=== PATIENT | male | born 1945 | race Caucasian/White ===

== ENCOUNTER → 2018-08-05 07:50 | Outpatient (CLI) | payer BC, SELFPAY ==
[2018-08-05 08:50] LABS: Alanine Aminotransferase 39 IU/L (21-72); Albumin 4.1 g/dL (3.5-5.0); Albumin Globulin Ratio 1.6 (1.0-2.8); Alkaline Phosphatase 69 U/L (38-126); Aspartate Aminotransferase 30 IU/L (17-59); BUN Creatinine Ratio 22.5 (6-22); Bilirubin Total 0.8 mg/dL (0.2-1.3); Blood Urea Nitrogen 27 mg/dL (9-20); Calcium 9.6 mg/dL (8.4-10.2); Carbon Dioxide 32 mmol/L (22-32); Chloride 103 mmol/L (98-107); Cholesterol 203 mg/dL (140-199); Estimated Glomerular Filt Rate 59.3 mL/min (>60); Globulin 2.6 g/dL (1.7-4.1); Glucose 87 mg/dL (80-110); HDL Cholesterol 57 mg/dL (40-60); HEMOLYSIS < 15 (0-50); LDL Cholesterol Calculated 128 mg/dL (<100); Potassium 4.1 mmol/L (3.4-5.1); Sodium 145 mmol/L (137-145); Total Protein 6.7 g/dL (6.3-8.2); Triglycerides 88 mg/dL (35-150)
== END ==
PROVIDERS: PCP Internal Medicine; Visit Provider Internal Medicine
DX: J30.9 Allergic rhinitis, unspecified (principal); R97.20 Elevated prostate specific antigen [PSA]; Z00.00 Encounter for general adult medical examination without abnormal findings
CPT/HCPCS: 36415; 80053; 80061; 84153

== ENCOUNTER → 2019-11-24 07:07 | Outpatient (CLI) | payer BC, SELFPAY ==
[2019-11-24 09:07] LABS: Alanine Aminotransferase 27 IU/L (<50); Albumin Globulin Ratio 1.3 (1.0-2.8); Alkaline Phosphatase 79 U/L (38-126); Aspartate Aminotransferase 33 IU/L (17-59); BUN Creatinine Ratio 17.7 (6-22); Bilirubin Total 0.7 mg/dL (0.2-1.3); Blood Urea Nitrogen 23 mg/dL (9-20); Calcium 9.4 mg/dL (8.4-10.2); Carbon Dioxide 28 mmol/L (22-32); Chloride 103 mmol/L (98-107); Cholesterol 198 mg/dL (140-199); Glucose 82 mg/dL (80-110); HDL Cholesterol 45 mg/dL (40-60); HEMOLYSIS < 15 (0-50); LDL Cholesterol Calculated 133 mg/dL (<100); Potassium 4.2 mmol/L (3.4-5.1); Sodium 140 mmol/L (137-145); Triglycerides 100 mg/dL (35-150)
[2019-11-24 09:34] LABS: Prostate Specific Antigen 3.94 ng/mL (0.10-4.00)
== END ==
PROVIDERS: Family Provider Internal Medicine; PCP Internal Medicine; Referring Provider Internal Medicine; Visit Provider Internal Medicine
DX: Z13.1 Encounter for screening for diabetes mellitus (principal); Z13.6 Encounter for screening for cardiovascular disorders; E78.5 Hyperlipidemia, unspecified; R97.20 Elevated prostate specific antigen [PSA]
CPT/HCPCS: 36415; 80053; 80061; 84153

== ENCOUNTER → 2020-06-02 13:54 | Outpatient (CLI) | payer BC, SELFPAY | PROVIDERS: Family Provider Internal Medicine; PCP Internal Medicine; Visit Provider Specialist | DX: N39.0 Urinary tract infection, site not specified (principal); N48.0 Leukoplakia of penis; N40.1 Benign prostatic hyperplasia with lower urinary tract symptoms; N13.8 Other obstructive and reflux uropathy; Z87.898 Personal history of other specified conditions | CPT/HCPCS: 51798; 81002; 87086 ==

== ENCOUNTER → 2020-07-21 07:34 | Outpatient (CLI) | payer BC, SELFPAY ==
[2020-07-21 10:08] LABS: Prostate Specific Antigen 5.51 ng/mL (0.10-4.00)
== END ==
PROVIDERS: Family Provider Internal Medicine; PCP Internal Medicine; Referring Provider Specialist; Visit Provider Specialist
DX: R97.20 Elevated prostate specific antigen [PSA] (principal)
CPT/HCPCS: 36415; 84153

== ENCOUNTER → 2022-11-22 07:16 | Outpatient (CLI) | payer BC, SELFPAY ==
[2022-11-22 08:19] LABS: Add Manual Diff / Slide Review NO; Basophils Absolute Auto 100 /uL (0-100); Basophils Percent Auto 1.3 % (0-2); Eosinophils Absolute Auto 500 /uL (0-450); Eosinophils Percent Auto 6.4 % (2-4); Hematocrit 47.7 % (41-53); Hemoglobin 15.7 g/dL (13.5-17.5); Lymphocytes Absolute Auto 1200 /uL (1100-4500); Lymphocytes Percent Auto 15.6 % (25-40); Mean Corpuscular HGB Conc 32.9 % (30-36); Mean Corpuscular Volume 91.1 fL (80-100); Monocytes Absolute Auto 800 /uL (0-900); Monocytes Percent Auto 10.4 % (3-14); Neutrophils Absolute Auto 5100 /uL (1500-7000); Neutrophils Percent Auto 66.3 % (50-75); Platelet Count 300 X10^3/uL (150-400); Red Blood Cell Count 5.23 X10^6/uL (4.5-5.9); Red Cell Distribution Width 14.7 % (11.6-14.8); White Blood Cell Count 7.7 X10^3/uL (4.5-11.0)
[2022-11-22 08:51] LABS: Alanine Aminotransferase 22 IU/L (<50); Albumin 3.8 g/dL (3.5-5.0); Albumin Globulin Ratio 1.5 (1.0-2.8); Alkaline Phosphatase 81 U/L (38-126); Aspartate Aminotransferase 25 IU/L (17-59); BUN Creatinine Ratio 31.7 (6-22); Bilirubin Total 0.6 mg/dL (0.2-1.3); Blood Urea Nitrogen 38 mg/dL (9-20); Calcium 9.2 mg/dL (8.4-10.2); Carbon Dioxide 29 mmol/L (22-32); Chloride 106 mmol/L (98-107); Cholesterol 204 mg/dL (140-199); Estimated Glomerular Filt Rate > 60 mL/min (>60); Globulin 2.6 g/dL (1.7-4.1); Glucose 89 mg/dL (80-110); HDL Cholesterol 62 mg/dL (40-60); HEMOLYSIS < 15 (0-50); LDL Cholesterol Calculated 127 mg/dL (<100); Potassium 4.4 mmol/L (3.4-5.1); Sodium 141 mmol/L (137-145); Total Protein 6.4 g/dL (6.3-8.2); Triglycerides 74 mg/dL (35-150)
[2022-11-22 08:58] LABS: Free T4, Direct Thyroxine 1.41 ng/dL (0.78-2.19)
[2022-11-22 09:12] LABS: Thyroid Stimulating Hormone 2.19 uIU/mL (0.47-4.68)
[2022-11-22 09:14] LABS: Appearance Urine UA CLEAR; Bilirubin Urine UA NEGATIVE (NEGATIVE); Color Urine UA YELLOW; Glucose Urine UA NEGATIVE (Negative); Ketones Urine UA NEGATIVE (NEGATIVE); Leukocyte Esterase Urine UA NEGATIVE (NEGATIVE); Nitrite Urine UA NEGATIVE (Negative); Occult Blood Urine UA TRACE-INTACT (Negative); Protein Urine UA NEGATIVE (Negative); Specific Gravity Urine UA >=1.030 (1.000-1.035); Urobilinogen Urine UA 0.2 E.U./dL (0.2)
[2022-11-22 09:20] LABS: Amorphous Sediment Urine 1+; Bacteria Urine Occasional (0-1); Culture Indicated Urine Specimen Cultured; RBC Urine 5-10/HPF (0-5/HPF); Squamous Epithelial Cell Urine 0-1 /HPF (0-5/HPF); WBC Urine 1-5/HPF (0-5/HPF)
== END ==
PROVIDERS: Family Provider Internal Medicine; PCP Internal Medicine; Referring Provider Internal Medicine; Visit Provider Internal Medicine
DX: F09 Unspecified mental disorder due to known physiological condition (principal); I63.9 Cerebral infarction, unspecified; R26.89 Other abnormalities of gait and mobility
CPT/HCPCS: 36415; 80053; 80061; 81001; 84439; 84443; 85025; 87086

== ENCOUNTER → 2022-12-10 07:53 | Outpatient (CLI) | payer BC, SELFPAY ==
--- NOTE | 2022-12-10 07:56 | DI.CT.S_ITS ---
PROCEDURE: CT HEAD/BRAIN WO/W CON INDICATIONS: Cerebral infarction TECHNIQUE: 4.5 mm thick angled axial sections acquired from the foramen magnum to the vertex before and after the administration of intravenous contrast, with coronal and sagittal reformats. For radiation dose reduction, the following was used: automated exposure control, adjustment of mA and/or kV according to patient size. COMPARISON: None. FINDINGS: Image quality: Excellent. CSF Spaces: Generalized ventriculomegaly out of proportion to sulcal widening. Brain: No midline shift. No intracranial bleeds or masses. No abnormal intracranial enhancement. Whiting-white interface appears normal. Skull and face: Calvarium and visualized facial bones appear intact, without suspicious lesions. Sinuses: Visualized sinuses and mastoids are clear. IMPRESSION: Moderate ventriculomegaly out of proportion to degree of cerebral atrophy. Differential would include centralized atrophy and normal pressure hydrocephalus. If clinically relevant, consider additional confirmatory testing. Approved by: Brendan Pelayo M.D. on 12/10/2022 at 10:31
--- NOTE | 2022-12-10 07:56 | DI.US.S_ITS ---
PROCEDURE: US CAROTID DOPPLER BI INDICATIONS: CEREBRAL INFARCTION TECHNIQUE: Color and pulse Doppler interrogation was performed of both carotid systems, with image documentation and velocity measurements. COMPARISON: [facility], , CAROTID ARTERY DOPPLER BILAT, 06/29/2011, 11:39. FINDINGS: Stenosis calculations are based on SRU (Society of Radiologists in Ultrasound) criteria. Right side: Brachial blood pressure: 138/74 mm Hg. Common carotid artery peak systolic velocity: 107 cm/sec. Internal carotid artery peak systolic velocity: 63 cm/sec. Internal carotid artery end diastolic velocity: 94 cm/sec. External carotid artery peak systolic velocity: 58 cm/sec. ICA/CCA peak systolic ratio: 0.9 . Whiting scale imaging description: Mild plaque at the bifurcation Percent internal carotid artery stenosis: Less than 50% . Vertebral artery: Flow direction is antegrade. Left side: Brachial blood pressure: 131/67 mm Hg. Common carotid artery peak systolic velocity: 108 cm/sec. Internal carotid artery peak systolic velocity: 58 cm/sec. Internal carotid artery end diastolic velocity: 71 cm/sec. External carotid artery peak systolic velocity: 71 cm/sec. ICA/CCA peak systolic ratio: 0.7 . Whiting scale imaging description: Mild plaque at the bifurcation Percent internal carotid artery stenosis: Less than 50% . Vertebral artery: Flow direction is antegrade. IMPRESSION: Less than 50% stenosis of the internal carotid arteries bilaterally. Overall appearance is stable. Dictated by: Zuleyka Verma M.D. on 12/10/2022 at 16:27 Approved by: Zuleyka Verma M.D. on 12/10/2022 at 16:37
--- NOTE | 2022-12-10 07:56 | DI.ECHO.S_ITS ---
[place] [facility]---------+ [facility] +---------+ : : [address] : : : : [id number] : : : : Phone: [phone]+ Echocardiogram Report + + :Name: ABEBE NORMAN Study Date: 12/10/2022 Height: 71 in : :[facility] ReadingLocation: Weight: 145 lb : : Gender: Male BSA: 1.8 m2 : :: 1945 Age: 77 yrs BP: 112/75 mmHg: :Reason For Study: CEREBRAL INFARCT : :Ordering Physician: JUVENAL, : :JAZMINE Pichardo Performed By: KRISTIN HAWLEY : :Referring: JAZMINE SANFORD : + + Interpretation Summary Normal left ventricle isize with ejection fraction 60-65%. Mild mitral regurgitation. The aortic valve is mildly calcified. Mild aortic regurgitation. Procedure: A two-dimensional transthoracic echocardiogram with color flow and Doppler was performed. The study quality was technically adequate. The patient was in sinus rhythm with heart rates between 66-77 bpm during the exam. Left Ventricle: The left ventricle is normal in size and wall thickness. The ejection fraction is estimated to be 60-65%. There are no focal wall motion abnormalities. Right Ventricle: The right ventricle is normal in size and function. Atria: The left atrial size is normal. The right atrium is mildly dilated. There is no Doppler evidence for an interatrial shunt. Mitral Valve: The mitral valve is normal in structure and function. There is mild mitral regurgitation. Aortic Valve: The aortic valve is trileaflet. The aortic valve is mildly calcified. There is no aortic valve stenosis. There is mild aortic regurgitation. Tricuspid Valve: The tricuspid valve is normal. There is trace tricuspid regurgitation. The right ventricular systolic pressure is estimated to be at least 34 mmHg based on an estimated right atrial pressure of 3 mm Hg. Pulmonic Valve: The pulmonic valve leaflets are thin and pliable; valve motion is normal. There is mild pulmonic regurgitation. Great Vessels: The aortic root is mildly dilated. The ascending aorta is normal in size. The IVC is of normal diameter and collapses greater than 50% with a sniff. This suggests a low right atrial pressure of 3 mm Hg. Pericardium/ Pleura There is no pericardial effusion. There is no pleural effusion. MMode/2D Measurements & Calculations LVIDd: 3.1 cm LVOT diam: 2.3 cm LVIDs: 2.2 cm Ao root diam: 4.2 cm FS: 27.8 % asc Aorta Diam: 3.5 cm IVSd: 0.97 cm Ao Arch Diam (Prox Trans): 3.0 cm LVPWd: 0.95 cm LV muñiz. diameter/BSA (cm/m^2): 1.7 LV sys. diameter/BSA (cm/m^2): 1.2 LA A2 area: 13.4 cm2 RA long axis: 4.5 cm LA A4 area: 12.9 cm2 RA area: 17.1 cm2 LA length (vol): 4.9 cm RA vol: 55.0 ml LA vol: 29.9 ml RA : 29.9 ml/m2 LA vol index: 16.2 ml/m2 IVC diam: 0.76 cm RVD1 (basal): 3.8 cm RVD2 (mid): 3.9 cm TAPSE: 2.1 cm Doppler Measurements & Calculations Ao V2 max: 114.9 cm/sec LVOT Max Deandre: 119.0 cm/sec Ao V2 mean: 82.0 cm/sec LV V1 max P.7 mmHg Ao max P.3 mmHg LV V1 VTI: 22.0 cm Ao mean P.9 mmHg JUNITO(I,D): 3.8 cm2 Ao V2 VTI: 23.4 cm JUNITO(V,D): 4.2 cm2 sev ratio: 0.94 JUNITO indexed to BSA (cm^2/m^2): 2.1 MV E max deandre: 88.6 cm/sec TR max deandre: 277.9 cm/sec MV A max deandre: 94.0 cm/sec TR max P.9 mmHg MV E/A: 0.94 PA pr(Accel): 24.2 mmHg Med Peak E' Deandre: 8.3 cm/sec E/E' med: 10.6 Lat Peak E' Deandre: 7.1 cm/sec E/E' lat: 12.5 E/e' average: 11.6 MV dec time: 0.25 sec SV(LVOT): 89.4 ml Electronically signed by: Uriah Curran on Reading Physician:12/10/2022 09:19 AM
== END ==
PROVIDERS: Family Provider Internal Medicine; PCP Internal Medicine; Referring Provider Internal Medicine; Visit Provider Internal Medicine
DX: I63.9 Cerebral infarction, unspecified (principal); I08.0 Rheumatic disorders of both mitral and aortic valves; I77.810 Thoracic aortic ectasia; F09 Unspecified mental disorder due to known physiological condition; R26.89 Other abnormalities of gait and mobility
CPT/HCPCS: 70470; 93306; 93880; Q9967

== ENCOUNTER → 2023-02-22 12:09 | Outpatient (CLI) | payer BC, SELFPAY ==
--- NOTE | 2023-02-22 | DI.MRI.S_ITS ---
PROCEDURE: MR HEAD/BRAIN WO CON INDICATIONS: Other amnesia TECHNIQUE: Non-contrast axial T1 spin echo, axial T2 fast spin echo, sagittal and axial FLAIR, coronal T2 fast spin echo, axial gradient echo, axial diffusion and ADC through the brain. COMPARISON: [facility], CT, CT HEAD/BRAIN WO/W CON, 12/10/2022, 9:05. FINDINGS: Image quality: Excellent. CSF spaces: The lateral ventricles and the 3rd ventricle are symmetrically prominent, as before. Basal cisterns are patent. No extra-axial fluid collections. Brain: No intracranial bleeds or mass effects. There is cerebral volume loss for age. There are periventricular and deep white matter chronic small vessel ischemic changes. Brainstem appears normal. Diffusion-weighted images show no acute ischemic insults. No chronic ischemic insults. Normal intravascular flow voids are present. Skull and face: Calvarial bone marrow is normal in signal. Orbits are normal. Sinuses: Sinuses and mastoids are clear. Moderate leftward nasal septal deviation is incidentally noted. IMPRESSION: Abnormally prominent lateral ventricles, which are more prominent than would be expected, given the degree of sulcal atrophy. Please consider normal pressure hydrocephalus. Dictated by: Jeffrey Orellana M.D. on 02/22/2023 at 12:36 Approved by: Jeffrey Orellana M.D. on 02/22/2023 at 12:37
== END ==
PROVIDERS: Family Provider Internal Medicine; PCP Internal Medicine; Referring Provider Psychiatry & Neurology Neurology; Visit Provider Psychiatry & Neurology Neurology
DX: R41.3 Other amnesia (principal); Z81.8 Family history of other mental and behavioral disorders
CPT/HCPCS: 70551

== ENCOUNTER 2023-06-04 10:45 | Outpatient (RCR) | payer BC, SELFPAY ==
--- NOTE | 2023-03-12 11:13 | PT.OIE ---
Current Diagnoses Unsteadiness on feet (03/12/23) Past Medical History (Last Updated 12/18/22 @ 11:53 by Pola Avila MD) Allergic rhinitis (05/03/14) BXO (balanitis xerotica obliterans) Chicken pox (~1952) Elevated prostate specific antigen (PSA) (02/04/18) Hyperlipidemia, unspecified (06/28/11) Measles (~1953) Mild cognitive impairment Mumps (~1958) Parkinson's Disease Rubella (~1963) Past Surgical History (Last Reviewed 11/20/22 @ 11:07 by Pola Avila MD) Anesthesia Cut of face (~1948) Hx of inguinal hernia surgery (~01/18/03) Urethral stricture (~10/10/02) Visit Care Team Role Provider Type Pola Avila MD Family Provider Physician Primary Care Provider Specialty: Internal Medicine Address: [address] [place] [address], [address], [address] Email: [email or web address] Michelle Morales MD Attending Provider Non-Staff Referring Provider Specialty: Neurology Address: [address] [place] [address], [id number] Email: Physical Therapy Initial Evaluation PT-OP-A Visit Information Start: 03/12/23 10:02 Freq: Status: Active Protocol: Document 03/12/23 10:02 ES (Rec: 03/12/23 10:57 ES [id number]) Out-Patient Physical Therapy Visit Information Visit Information Visit Type Initial Evaluation Visit Start Time 10:02 Visit Stop Time 10:47 Total Visit Minutes 45 Visit Number 1 Number of SENSOR SPECIALIST Visits 0 Evaluation Information Evaluation Date 03/12/23 PT-OP-B Current Condition Start: 03/12/23 10:02 Freq: Status: Active Protocol: Document 03/12/23 10:02 ES (Rec: 03/12/23 10:57 ES [id number]) Current Condition History of Current Condition Current Complaints Difficulty walking, unsteadiness History of Current Condition Patient was diagnosed with Parkinson's Disease in November 2021, though had been noticing symptoms for a while before that. Is being followed by a neurologist and was put on medication but states it doesn't seem to be making much difference. No falls in the last year. Also recently diagnosed with dementia. ( present during visit and provided history). Has been using a walking stick recently for walking outside. stated they walk during good weather but have trouble figuring out ways to exercise in inclement weather especially during winter months. Treatment Goals Patient/Caregiver Goals To be able to walk easier, to have better balance. PT-OP-D Balance Start: 03/12/23 10:02 Freq: Status: Active Protocol: Document 03/12/23 10:02 ES (Rec: 03/12/23 10:57 ES [id number]) Balance Tests Hickman Balance Test Hickman Balance Test Score 41 (<45 indicates increased risk for falls) PT-OP-E Functional Tests Start: 03/12/23 10:02 Freq: Status: Active Protocol: Document 03/12/23 10:02 ES (Rec: 03/12/23 10:57 ES [id number]) Functional Tests Five Times Sit to Stand Test Score 22.56 seconds Timed Up and Go (TUG) Score 17 seconds Comments no AD TUG Impairment Rating 60 to <80% Impaired (Score 16- 17) PT-OP-G Mobility & Gait Start: 03/12/23 10:02 Freq: Status: Active Protocol: Document 03/12/23 10:02 ES (Rec: 03/12/23 11:12 ES [id number]) OP Gait Assessment Gait Deviations General Gait Pattern Decreased Stride Length, Decreased Feet Clearance, Festinating,Flexed Trunk Comments Gait Comments Ambulates with intermittent shuffling pattern, able to improve with cueing. PT-OP-T Assessment and Plan Start: 03/12/23 10:02 Freq: Status: Active Protocol: Document 03/12/23 10:02 ES (Rec: 03/12/23 11:12 ES [id number]) Physical Therapy Assessment Rehab Potential Rehabilitation Potential Good Evaluation Complexity Number of Personal Factors/Comorbidities 1-2 Number of Body Systems Impaired 1-2 Clinical Presentation at Evaluation Evolving Impairments Impairments Balance,Coordination, Functional Mobility,Gait, Strength Goals Three Impairment Functional mobility, independence Snf Goal (LTG) Patient and will be independent in home/community fitness program for maintenance of function. LTG Duration 8 weeks (05/07/23) Two Impairment Balance Snf Goal (LTG) Patient will improve TUG score to <12 seconds indicating low risk for falls. LTG Duration 8 weeks (05/07/23) One Impairment Weakness Short Term Goal (STG) Patient will decrease 5xSTS score to <15 seconds indicating clinically significant change in functional strength. STG Duration 4 weeks (04/09/23) Assessment Summary Assessment Patient is a 77 year old male referred to PT for unsteadiness related to Parkinson's Disease. He presents with decreased functional strength, decreased balance, and impaired gait pattern. All functional outcome measure scores classified him at increased risk for falls. He demonstrated typical Parkinson 's gait with shuffling pattern and difficulty with initiation and turning. He will benefit from skilled therapy to address these problems through strength and balance training as well provide education on HEP and community resources for exercise to maintain year- round. He may also benefit from LSVT [facility] and Loud training for more specific and intensive treatment. Physical Therapy Plan Frequency and Duration Frequency of Treatment 1x/Week Duration of treatment (weeks) 8 Plan of Care Start Date 03/12/23 Plan of Care End Date 05/07/23 Therapeutic Interventions Therapeutic Interventions Balance Training,Coordination Training,Gait Training,Home Exercise Program,Neuromuscular Re-education,Patient/ Caregiver Education,Self-Care/ Home Management,Therapeutic Activities,Therapeutic Exercises Other Therapeutic Interventions LSVT Big and Loud Next Visit Focus/Plan Next Note Type Treatment Note Next Visit Plan Balance and gait training, instruct in HEP. Provide options for LSVT treatment.
--- NOTE | 2023-03-12 11:16 | PT.OPPOC ---
Physical, Occupational & Speech Therapy At [facility] Current Diagnoses Unsteadiness on feet (03/12/23) Visit Care Team Role Provider Type Pola Avila MD Family Provider Physician Primary Care Provider Specialty: Internal Medicine Address: [address] [place] [address], [facility] [address], [place], [address] Email: [email or web address] Michelle Morales MD Attending Provider Non-Staff Referring Provider Specialty: Neurology Address: [address] [place], [address] Email: Plan Of Care PT-OP-T Assessment and Plan Start: 03/12/23 10:02 Freq: Status: Active Protocol: Document 03/12/23 10:02 ES (Rec: 03/12/23 11:12 ES [id number]) Physical Therapy Assessment Rehab Potential Rehabilitation Potential Good Evaluation Complexity Number of Personal Factors/Comorbidities 1-2 Number of Body Systems Impaired 1-2 Clinical Presentation at Evaluation Evolving Impairments Impairments Balance,Coordination, Functional Mobility,Gait, Strength Goals Three Impairment Functional mobility, independence Usp Goal (LTG) Patient and will be independent in home/community fitness program for maintenance of function. LTG Duration 8 weeks (05/07/23) Two Impairment Balance Ultrasound Specialist Goal (LTG) Patient will improve TUG score to <12 seconds indicating low risk for falls. LTG Duration 8 weeks (05/07/23) One Impairment Weakness Short Term Goal (STG) Patient will decrease 5xSTS score to <15 seconds indicating clinically significant change in functional strength. STG Duration 4 weeks (04/09/23) Assessment Summary Assessment Patient is a 77 year old male referred to PT for unsteadiness related to Parkinson's Disease. He presents with decreased functional strength, decreased balance, and impaired gait pattern. All functional outcome measure scores classified him at increased risk for falls. He demonstrated typical Parkinson 's gait with shuffling pattern and difficulty with initiation and turning. He will benefit from skilled therapy to address these problems through strength and balance training as well provide education on HEP and community resources for exercise to maintain year- round. He may also benefit from LSVT Big and Loud training for more specific and intensive treatment. Physical Therapy Plan Frequency and Duration Frequency of Treatment 1x/Week Duration of treatment (weeks) 8 Plan of Care Start Date 03/12/23 Plan of Care End Date 05/07/23 Therapeutic Interventions Therapeutic Interventions Balance Training,Coordination Training,Gait Training,Home Exercise Program,Neuromuscular Re-education,Patient/ Caregiver Education,Self-Care/ Home Management,Therapeutic Activities,Therapeutic Exercises Other Therapeutic Interventions LSVT Big and Loud Next Visit Focus/Plan Next Note Type Treatment Note Next Visit Plan Balance and gait training, instruct in HEP. Provide options for LSVT treatment. Plan of Care Dates Plan of Care Start Date 03/12/23 Plan of Care End Date 05/07/23 Electronically Signed by: Luz Marina De Souza, PT 03/12/23 6525 If you are in agreement with this Plan of Care, please return a signed and dated copy. I have reviewed this Plan of Care and certify that the skilled therapy services above are required to meet the patient?s needs. Physician Signature Date Printed Name and Credentials Clinical Instructor Signature Printed Name and Credentials
--- NOTE | 2023-03-21 16:40 | PT.OTN ---
Current Diagnoses Unsteadiness on feet (03/21/23) Physical Therapy Treatment Note PT-OP-A Visit Information Start: 03/12/23 10:02 Freq: Status: Active Protocol: Document 03/21/23 15:45 ES (Rec: 03/21/23 16:39 ES [id number]) Out-Patient Physical Therapy Visit Information Visit Information Visit Type Treatment Note Visit Start Time 15:36 Visit Stop Time 16:21 Total Visit Minutes 45 Visit Number 2 PT-OP-B Current Condition Start: 03/12/23 10:02 Freq: Status: Active Protocol: Document 03/12/23 10:02 ES (Rec: 03/12/23 10:57 ES [id number]) Current Condition History of Current Condition Current Complaints Difficulty walking, unsteadiness History of Current Condition Patient was diagnosed with Parkinson's Disease in November 2021, though had been noticing symptoms for a while before that though. Is being followed by a neurologist and was put on medication but states it doesn't seem to be making much difference. No falls in the last year. Also recently diagnosed with dementia. ( present during visit and provided history). Has been using a walking stick recently for walking outside. stated they walk during good weather but have trouble figuring out ways to exercise in inclement weather especially during winter months. Treatment Goals Patient/Caregiver Goals To be able to walk easier, to have better balance. PT-OP-C Subjective Start: 03/12/23 10:02 Freq: Status: Active Protocol: Document 03/21/23 15:45 ES (Rec: 03/21/23 16:39 ES [id number]) OP-PT Subjective Patient Comments Patient Comments Patient's reported that patient started having diarrhea on Saturday, was better by the next night but was exhausted for a couple days. No falls since last visit. PT-OP-D Balance Start: 03/12/23 10:02 Freq: Status: Active Protocol: Document 03/12/23 10:02 ES (Rec: 03/12/23 10:57 ES [id number]) Balance Tests Hickman Balance Test Hickman Balance Test Score 41 (<45 indicates increased risk for falls) PT-OP-E Functional Tests Start: 03/12/23 10:02 Freq: Status: Active Protocol: Document 03/12/23 10:02 ES (Rec: 03/12/23 10:57 ES [id number]) Functional Tests Five Times Sit to Stand Test Score 22.56 seconds Timed Up and Go (TUG) Score 17 seconds Comments no AD TUG Impairment Rating 60 to <80% Impaired (Score 16- 17) PT-OP-G Mobility & Gait Start: 03/12/23 10:02 Freq: Status: Active Protocol: Document 03/12/23 10:02 ES (Rec: 03/12/23 11:12 ES [id number]) OP Gait Assessment Gait Deviations General Gait Pattern Decreased Stride Length, Decreased Feet Clearance, Festinating,Flexed Trunk Comments Gait Comments Ambulates with intermittent shuffling pattern, able to improve with cueing. PT-OP-Q Treatments Start: 03/12/23 10:02 Freq: Status: Active Protocol: Document 03/21/23 15:45 ES (Rec: 03/21/23 16:39 ES [id number]) Cardio Equipment Recumbent Elliptical (Biodex) Duration (Minutes) 10 Resistance 3 Seat Position 12 Other 30 rpm Neuro Re-Education Treatment Balance Activities 3 Details Step up/down 6 step with and without UE support Reps/Duration 3x5 ea side 2 Details Ball toss Surface Foam pad Equipment // bars, small romanian ball 1 Details Step over hurdles forward, sideways; forward/backward with single leg Equipment // bars PT-OP-T Assessment and Plan Start: 03/12/23 10:02 Freq: Status: Active Protocol: Document 03/21/23 15:45 ES (Rec: 03/21/23 16:39 ES [id number]) Physical Therapy Assessment Goals Three Impairment Functional mobility, independence Prison Goal (LTG) Patient and will be independent in home/community fitness program for maintenance of function. LTG Duration 8 weeks (05/07/23) Two Impairment Balance Prison Goal (LTG) Patient will improve TUG score to <12 seconds indicating low risk for falls. LTG Duration 8 weeks (05/07/23) One Impairment Weakness Short Term Goal (STG) Patient will decrease 5xSTS score to <15 seconds indicating clinically significant change in functional strength. STG Duration 4 weeks (04/09/23) Assessment Summary Assessment Patient initially had difficulty clearing hurdles, improving with cueing for bigger/wider steps and with repetition/practice. He demonstrated weakness with step up when performed without UE support. He was fatigued at end of session. He will benefit from further strength and balance training to reduce fall risk. Patient's was provided with list of LSVT [facility] and L[facility] providers in the area to contact. Physical Therapy Plan Next Visit Focus/Plan Next Note Type Treatment Note Next Visit Plan Assess response to today's treatment. Instruct in strengthening program for home . Progress balance training on shuttle balance board.
--- NOTE | 2023-04-04 16:57 | PT.OTN ---
Current Diagnoses Unsteadiness on feet (04/04/23) Physical Therapy Treatment Note PT-OP-A Visit Information Start: 03/12/23 10:02 Freq: Status: Active Protocol: Document 04/04/23 13:29 ES (Rec: 04/04/23 16:57 ES [id number]) Out-Patient Physical Therapy Visit Information Visit Information Visit Type Treatment Note Visit Start Time 13:20 Visit Stop Time 13:48 Total Visit Minutes 28 Visit Number 3 PT-OP-B Current Condition Start: 03/12/23 10:02 Freq: Status: Active Protocol: Document 03/12/23 10:02 ES (Rec: 03/12/23 10:57 ES [id number]) Current Condition History of Current Condition Current Complaints Difficulty walking, unsteadiness History of Current Condition Patient was diagnosed with Parkinson's Disease in November 2021, though had been noticing symptoms for a while before that though. Is being followed by a neurologist and was put on medication but states it doesn't seem to be making much difference. No falls in the last year. Also recently diagnosed with dementia. ( present during visit and provided history). Has been using a walking stick recently for walking outside. stated they walk during good weather but have trouble figuring out ways to exercise in inclement weather especially during winter months. Treatment Goals Patient/Caregiver Goals To be able to walk easier, to have better balance. PT-OP-C Subjective Start: 03/12/23 10:02 Freq: Status: Active Protocol: Document 04/04/23 13:29 ES (Rec: 04/04/23 16:57 ES [id number]) OP-PT Subjective Patient Comments Patient Comments Patient's reported that Tre started having diarrhea again and she was thinking it was the levodopa so her PCP had them stop that medication. Diarrhea has improved but patient now is weaker and more tired. reported Tre has been shuffling more and been more stiff since stopping the medication and being sick . Looked into [employer] programs and they require 4x/ week which is not reasonable for them. PT-OP-D Balance Start: 03/12/23 10:02 Freq: Status: Active Protocol: Document 03/12/23 10:02 ES (Rec: 03/12/23 10:57 ES [id number]) Balance Tests Hickman Balance Test Hickman Balance Test Score 41 (<45 indicates increased risk for falls) PT-OP-E Functional Tests Start: 03/12/23 10:02 Freq: Status: Active Protocol: Document 03/12/23 10:02 ES (Rec: 03/12/23 10:57 ES [id number]) Functional Tests Five Times Sit to Stand Test Score 22.56 seconds Timed Up and Go (TUG) Score 17 seconds Comments no AD TUG Impairment Rating 60 to <80% Impaired (Score 16- 17) PT-OP-G Mobility & Gait Start: 03/12/23 10:02 Freq: Status: Active Protocol: Document 03/12/23 10:02 ES (Rec: 03/12/23 11:12 ES [id number]) OP Gait Assessment Gait Deviations General Gait Pattern Decreased Stride Length, Decreased Feet Clearance, Festinating,Flexed Trunk Comments Gait Comments Ambulates with intermittent shuffling pattern, able to improve with cueing. PT-OP-Q Treatments Start: 03/12/23 10:02 Freq: Status: Active Protocol: Document 04/04/23 13:29 ES (Rec: 04/04/23 16:57 ES [id number]) Cardio Equipment Recumbent Elliptical (Biodex) Duration (Minutes) 5 Resistance 3 Seat Position 12 Other 30 rpm Therapeutic Exercises Standing Exercises SLS Side bilateral Equipment Used Bar, BUE support Reps/Minutes 2x10s ea side Comments HEP; cued for decreased UE support - use fingers vs hand Heel toe raises Side bilateral Equipment Used Bar, BUE support Reps/Minutes x10 Comments HEP Step back Side bilateral Equipment Used Bar, BUE support, target on floor Reps/Minutes x10 ea side Comments HEP; visual cue for increased ROM Side step Side bilateral Equipment Used bar, BUE support, target on floor Reps/Minutes x10 ea side Comments HEP; Visual cue for increased ROM Hip flexion Standing Exercise Name Marching Side bilateral Equipment Used Bar, BUE support Reps/Minutes x10 ea side Comments HEP; Cued for full ROM PT-OP-T Assessment and Plan Start: 03/12/23 10:02 Freq: Status: Active Protocol: Document 04/04/23 13:29 ES (Rec: 04/04/23 16:57 ES [id number]) Physical Therapy Assessment Impairments Impairments Balance,Coordination, Functional Mobility,Gait, Strength Goals Three Impairment Functional mobility, independence Mcfp Goal (LTG) Patient and will be independent in home/community fitness program for maintenance of function. LTG Duration 8 weeks (05/07/23) Two Impairment Balance Mcfp Goal (LTG) Patient will improve TUG score to <12 seconds indicating low risk for falls. LTG Duration 8 weeks (05/07/23) One Impairment Weakness Short Term Goal (STG) Patient will decrease 5xSTS score to <15 seconds indicating clinically significant change in functional strength. STG Duration 4 weeks (04/09/23) Assessment Summary Assessment Patient required visual cues in order to achieve full ROM with ex's. He was fatigued with treatment today due to deconditioning. He demonstrated increased shuffling gait and flexed posture, likely due to stopping PD meds. He had difficulty with SLS, requiring heavy LAUREL support. He and his were provided with handout for ex's from today. He will benefit from further strength and balance training with progression of HEP. Physical Therapy Plan Frequency and Duration Frequency of Treatment 1x/Week Duration of treatment (weeks) 8 Plan of Care Start Date 03/12/23 Plan of Care End Date 05/07/23
--- NOTE | 2023-04-08 16:25 | PT.OTN ---
Current Diagnoses Unsteadiness on feet (04/08/23) Physical Therapy Treatment Note PT-OP-A Visit Information Start: 03/12/23 10:02 Freq: Status: Active Protocol: Document 04/08/23 15:35 ES (Rec: 04/08/23 16:24 ES [id number]) Out-Patient Physical Therapy Visit Information Visit Information Visit Type Treatment Note Visit Start Time 15:36 Visit Stop Time 16:16 Total Visit Minutes 40 Visit Number 4 PT-OP-B Current Condition Start: 03/12/23 10:02 Freq: Status: Active Protocol: Document 03/12/23 10:02 ES (Rec: 03/12/23 10:57 ES [id number]) Current Condition History of Current Condition Current Complaints Difficulty walking, unsteadiness History of Current Condition Patient was diagnosed with Parkinson's Disease in November 2021, though had been noticing symptoms for a while before that though. Is being followed by a neurologist and was put on medication but states it doesn't seem to be making much difference. No falls in the last year. Also recently diagnosed with dementia. ( present during visit and provided history). Has been using a walking stick recently for walking outside. stated they walk during good weather but have trouble figuring out ways to exercise in inclement weather especially during winter months. Treatment Goals Patient/Caregiver Goals To be able to walk easier, to have better balance. PT-OP-C Subjective Start: 03/12/23 10:02 Freq: Status: Active Protocol: Document 04/08/23 15:35 ES (Rec: 04/08/23 16:24 ES [id number]) OP-PT Subjective Patient Comments Patient Comments Patient reported his back was a bit sore after last visit, reports he has a hx of back problems. was able to do exercises with patient at home without problems. Broke it up into parts because it was a lot to do at once. Patient is still having some diarrhea per . PT-OP-D Balance Start: 03/12/23 10:02 Freq: Status: Active Protocol: Document 03/12/23 10:02 ES (Rec: 03/12/23 10:57 ES [id number]) Balance Tests Hickman Balance Test Hickman Balance Test Score 41 (<45 indicates increased risk for falls) PT-OP-E Functional Tests Start: 03/12/23 10:02 Freq: Status: Active Protocol: Document 03/12/23 10:02 ES (Rec: 03/12/23 10:57 ES [id number]) Functional Tests Five Times Sit to Stand Test Score 22.56 seconds Timed Up and Go (TUG) Score 17 seconds Comments no AD TUG Impairment Rating 60 to <80% Impaired (Score 16- 17) PT-OP-G Mobility & Gait Start: 03/12/23 10:02 Freq: Status: Active Protocol: Document 03/12/23 10:02 ES (Rec: 03/12/23 11:12 ES [id number]) OP Gait Assessment Gait Deviations General Gait Pattern Decreased Stride Length, Decreased Feet Clearance, Festinating,Flexed Trunk Comments Gait Comments Ambulates with intermittent shuffling pattern, able to improve with cueing. PT-OP-Q Treatments Start: 03/12/23 10:02 Freq: Status: Active Protocol: Document 04/08/23 15:35 ES (Rec: 04/08/23 16:24 ES [id number]) Cardio Equipment Recumbent Stepper (Sci-Fit) Duration (Minutes) 6 Resistance 2.0 Seat Position 14 Other Cues for full ROM UE/LE Treadmill Duration (Minutes) 5 Speed 0.7 mph Incline 0 Other Cues for increased step length with visual target Therapeutic Exercises Standing Exercises Lunge stretch Side bilateral Equipment Used // bars Reps/Minutes 2x30s ea Comments hip flexor and calf stretch at end of session Neuro Re-Education Treatment Balance Activities 4 Details Tilt board fwd/bkwd and lateral Equipment // bars Comments Min A progressing to CGA, cues for forward weight shift with fwd/bkwd orientation to reduce posterior lean 2 Details Balloon toss, one foot on step Equipment 8 step Comments CGA with gait belt PT-OP-T Assessment and Plan Start: 03/12/23 10:02 Freq: Status: Active Protocol: Document 04/08/23 15:35 ES (Rec: 04/08/23 16:24 ES [id number]) Physical Therapy Assessment Goals Three Impairment Functional mobility, independence Mcc Goal (LTG) Patient and will be independent in home/community fitness program for maintenance of function. LTG Duration 8 weeks (05/07/23) Two Impairment Balance Smasher Hand Goal (LTG) Patient will improve TUG score to <12 seconds indicating low risk for falls. LTG Duration 8 weeks (05/07/23) One Impairment Weakness Short Term Goal (STG) Patient will decrease 5xSTS score to <15 seconds indicating clinically significant change in functional strength. STG Duration 4 weeks (04/09/23) Assessment Summary Assessment Patient had improved activity tolerance this visit though still c/o fatigue throughout visit requiring seated rest breaks. He had difficulty increasing step length on TM, requiring visual and verbal cues. He will benefit from further balance and gait training to reduce fall risk. Physical Therapy Plan Frequency and Duration Frequency of Treatment 1x/Week Duration of treatment (weeks) 8 Plan of Care Start Date 03/12/23 Plan of Care End Date 05/07/23 Therapeutic Interventions Therapeutic Interventions Balance Training,Coordination Training,Gait Training,Home Exercise Program,Neuromuscular Re-education,Patient/ Caregiver Education,Self-Care/ Home Management,Therapeutic Activities,Therapeutic Exercises Other Therapeutic Interventions LSVT Big and Loud Next Visit Focus/Plan Next Note Type Treatment Note Next Visit Plan Progress balance training on various surfaces.
--- NOTE | 2023-04-23 16:40 | PT.OTN ---
Current Diagnoses Unsteadiness on feet (04/23/23) Physical Therapy Treatment Note PT-OP-A Visit Information Start: 03/12/23 10:02 Freq: Status: Active Protocol: Document 04/23/23 15:42 ES (Rec: 04/23/23 15:53 ES [id number]) Out-Patient Physical Therapy Visit Information Visit Information Visit Type Progress Note Visit Note Progress note for 04/12/23 - 09/05 Visit Start Time 15:42 Visit Stop Time 16:27 Total Visit Minutes 45 Visit Number 5 PT-OP-B Current Condition Start: 03/12/23 10:02 Freq: Status: Active Protocol: Document 03/12/23 10:02 ES (Rec: 03/12/23 10:57 ES [id number]) Current Condition History of Current Condition Current Complaints Difficulty walking, unsteadiness History of Current Condition Patient was diagnosed with Parkinson's Disease in November 2021, though had been noticing symptoms for a while before that though. Is being followed by a neurologist and was put on medication but states it doesn't seem to be making much difference. No falls in the last year. Also recently diagnosed with dementia. ( present during visit and provided history). Has been using a walking stick recently for walking outside. stated they walk during good weather but have trouble figuring out ways to exercise in inclement weather especially during winter months. Treatment Goals Patient/Caregiver Goals To be able to walk easier, to have better balance. PT-OP-C Subjective Start: 03/12/23 10:02 Freq: Status: Active Protocol: Document 04/23/23 15:42 ES (Rec: 04/23/23 15:53 ES [id number]) OP-PT Subjective Patient Comments Patient Comments Patient has had to miss therapy visits due to GI issues; stated they saw the doctor and Tre was diagnosed with constipation. reported they have been trying to do exercises and walking but have been limited because of patient being ill. PT-OP-D Balance Start: 03/12/23 10:02 Freq: Status: Active Protocol: Document 04/23/23 15:42 ES (Rec: 04/23/23 16:10 ES [id number]) Balance Tests Hickman Balance Test Hickman Balance Test Score 40 (<45 indicates increased risk for falls) PT-OP-E Functional Tests Start: 03/12/23 10:02 Freq: Status: Active Protocol: Document 04/23/23 15:42 ES (Rec: 04/23/23 16:10 ES [id number]) Functional Tests Five Times Sit to Stand Test Score 27.4 seconds Timed Up and Go (TUG) Score 20 seconds Comments no AD TUG Impairment Rating 100% Impaired (Score 20) PT-OP-G Mobility & Gait Start: 03/12/23 10:02 Freq: Status: Active Protocol: Document 04/23/23 15:42 ES (Rec: 04/23/23 16:10 ES [id number]) OP Gait Assessment Gait Deviations General Gait Pattern Decreased Stride Length, Decreased Feet Clearance, Festinating,Flexed Trunk Comments Gait Comments Ambulates with intermittent shuffling pattern, able to improve with cueing. PT-OP-Q Treatments Start: 03/12/23 10:02 Freq: Status: Active Protocol: Document 04/23/23 15:42 ES (Rec: 04/23/23 15:53 ES [id number]) Cardio Equipment Recumbent Stepper (Sci-Fit) Duration (Minutes) 8 Resistance 2.0 Seat Position 14 Other Cues for full ROM UE/LE, increased speed Therapeutic Exercises Sitting Exercises 5xSTS Comments results above STS Resistance L1 band at waist (attached to gait belt) Reps/Minutes 2x10 Comments No UE support, 23 plinth height Standing Exercises Step tap Side bilateral Resistance 2lb ankle weights Equipment Used B rails Reps/Minutes 2x10 ea B Comments Forward, lateral, 6-12 step Neuro Re-Education Treatment Balance Activities TUG Comments results above Hickman Comments results above PT-OP-T Assessment and Plan Start: 03/12/23 10:02 Freq: Status: Active Protocol: Document 04/23/23 15:42 ES (Rec: 04/23/23 15:53 ES [id number]) Physical Therapy Assessment Impairments Impairments Balance,Coordination, Functional Mobility,Gait, Strength Goals Three Impairment Functional mobility, independence Crawler Dragline Operator Goal (LTG) Patient and will be independent in home/community fitness program for maintenance of function. LTG Duration 8 weeks (05/07/23) - progressing 04/23/23 Two Impairment Balance Crawler Dragline Operator Goal (LTG) Patient will improve TUG score to <12 seconds indicating low risk for falls. LTG Duration 8 weeks (05/07/23) - no progress 04/23/23 One Impairment Weakness Short Term Goal (STG) Patient will decrease 5xSTS score to <15 seconds indicating clinically significant change in functional strength. STG Duration 4 weeks (04/09/23) - no progress 04/23/23 Progress Towards Goals Progress Towards Goals Slow Progress due to Medical Issues Progress Comments Unable to attend multiple PT visits due to GI issues. Has been taken off PD medication. Assessment Summary Assessment Patient has been seen for 5 visits in this reporting period (8 weeks). He has had to miss visits and has been limited in ability to participate in HEP due to ongoing GI issues, so his progress has been slower than expected, and his scores on balance/functional measures have not improved since initial eval. Patient was also taken off PD meds which has impacted his balance and gait. Patient will benefit from further therapy in order to reduce his fall risk and improve his functional activity tolerance as his GI issues improve. Will extend his POC to account for his missed visits and medical setbacks. Physical Therapy Plan Frequency and Duration Frequency of Treatment 1x/Week Duration of treatment (weeks) 8 Plan of Care Start Date 04/23/23 Plan of Care End Date 06/18/23
--- NOTE | 2023-04-23 16:41 | PT.OPPOC ---
Physical, Occupational & Speech Therapy At [facility] Current Diagnoses Unsteadiness on feet (04/23/23) Visit Care Team Role Provider Type Pola Avila MD Family Provider Physician Primary Care Provider Specialty: Internal Medicine Address: [address] [place] [address], [facility] [address], [place], [address] Email: [email or web address] Michelle Morales MD Attending Provider Non-Staff Referring Provider Specialty: Neurology Address: [address] [place], [address] Email: Plan Of Care PT-OP-T Assessment and Plan Start: 03/12/23 10:02 Freq: Status: Active Protocol: Document 04/23/23 15:42 ES (Rec: 04/23/23 15:53 ES [id number]) Physical Therapy Assessment Impairments Impairments Balance,Coordination, Functional Mobility,Gait, Strength Goals Three Impairment Functional mobility, independence Alf Goal (LTG) Patient and will be independent in home/community fitness program for maintenance of function. LTG Duration 8 weeks (05/07/23) - progressing 04/23/23 Two Impairment Balance Alf Goal (LTG) Patient will improve TUG score to <12 seconds indicating low risk for falls. LTG Duration 8 weeks (05/07/23) - no progress 04/23/23 One Impairment Weakness Short Term Goal (STG) Patient will decrease 5xSTS score to <15 seconds indicating clinically significant change in functional strength. STG Duration 4 weeks (04/09/23) - no progress 04/23/23 Progress Towards Goals Progress Towards Goals Slow Progress due to Medical Issues Progress Comments Unable to attend multiple PT visits due to GI issues. Has been taken off PD medication. Assessment Summary Assessment Patient has been seen for 5 visits in this reporting period (8 weeks). He has had to miss visits and has been limited in ability to participate in HEP due to ongoing GI issues, so his progress has been slower than expected, and his scores on balance/functional measures have not improved since initial eval. Patient was also taken off PD meds which has impacted his balance and gait. Patient will benefit from further therapy in order to reduce his fall risk and improve his functional activity tolerance as his GI issues improve. Will extend his POC to account for his missed visits and medical setbacks. Physical Therapy Plan Frequency and Duration Frequency of Treatment 1x/Week Duration of treatment (weeks) 8 Plan of Care Start Date 04/23/23 Plan of Care End Date 06/18/23 Plan of Care Dates Plan of Care Start Date 04/23/23 Plan of Care End Date 06/18/23 Electronically Signed by: Luz Marina De Souza, PT 04/23/23 3616 If you are in agreement with this Plan of Care, please return a signed and dated copy. I have reviewed this Plan of Care and certify that the skilled therapy services above are required to meet the patient?s needs. Physician Signature Date Printed Name and Credentials Clinical Instructor Signature Printed Name and Credentials
--- NOTE | 2023-05-09 14:19 | PT.OTN ---
Current Diagnoses Unsteadiness on feet (05/09/23) Physical Therapy Treatment Note PT-OP-A Visit Information Start: 03/12/23 10:02 Freq: Status: Active Protocol: Document 05/09/23 14:07 ED (Rec: 05/09/23 14:19 ED [id number]) Out-Patient Physical Therapy Visit Information Visit Information Visit Type Treatment Note Visit Start Time 13:30 Visit Stop Time 14:10 Total Visit Minutes 40 Visit Number 6 PT-OP-B Current Condition Start: 03/12/23 10:02 Freq: Status: Active Protocol: Document 03/12/23 10:02 ES (Rec: 03/12/23 10:57 ES [id number]) Current Condition History of Current Condition Current Complaints Difficulty walking, unsteadiness History of Current Condition Patient was diagnosed with Parkinson's Disease in November 2021, though had been noticing symptoms for a while before that though. Is being followed by a neurologist and was put on medication but states it doesn't seem to be making much difference. No falls in the last year. Also recently diagnosed with dementia. ( present during visit and provided history). Has been using a walking stick recently for walking outside. stated they walk during good weather but have trouble figuring out ways to exercise in inclement weather especially during winter months. Treatment Goals Patient/Caregiver Goals To be able to walk easier, to have better balance. PT-OP-C Subjective Start: 03/12/23 10:02 Freq: Status: Active Protocol: Document 05/09/23 14:07 ED (Rec: 05/09/23 14:19 ED [id number]) OP-PT Subjective Patient Comments Patient Comments Pt's present for PT. States that she has been having a difficult time performing HEP regularly. However, they recently got a CG for a few hours each week and that has been helpful for getting the HEP done. PT-OP-D Balance Start: 03/12/23 10:02 Freq: Status: Active Protocol: Document 04/23/23 15:42 ES (Rec: 04/23/23 16:10 ES [id number]) Balance Tests Hickman Balance Test Hickman Balance Test Score 40 (<45 indicates increased risk for falls) PT-OP-E Functional Tests Start: 03/12/23 10:02 Freq: Status: Active Protocol: Document 04/23/23 15:42 ES (Rec: 04/23/23 16:10 ES [id number]) Functional Tests Five Times Sit to Stand Test Score 27.4 seconds Timed Up and Go (TUG) Score 20 seconds Comments no AD TUG Impairment Rating 100% Impaired (Score 20) PT-OP-G Mobility & Gait Start: 03/12/23 10:02 Freq: Status: Active Protocol: Document 04/23/23 15:42 ES (Rec: 04/23/23 16:10 ES [id number]) OP Gait Assessment Gait Deviations General Gait Pattern Decreased Stride Length, Decreased Feet Clearance, Festinating,Flexed Trunk Comments Gait Comments Ambulates with intermittent shuffling pattern, able to improve with cueing. PT-OP-Q Treatments Start: 03/12/23 10:02 Freq: Status: Active Protocol: Document 05/09/23 14:07 ED (Rec: 05/09/23 14:19 ED [id number]) Cardio Equipment Recumbent Stepper (Sci-Fit) Duration (Minutes) 8 Resistance 2.0 Seat Position 14 Other Cues for full ROM UE/LE, increased speed Therapeutic Exercises Sitting Exercises STS Reps/Minutes 3x10 Comments chair + foam pad Standing Exercises standing ball dribble Reps/Minutes 2x10 Comments physioball dribble Side step Reps/Minutes 3x2 laps Comments // bars c/ B UE support Hip flexion Reps/Minutes 3x10 reps/leg Comments in // bars and B UE support Other Exercises ball catch Reps/Minutes 3x15 Comments sitting PT-OP-T Assessment and Plan Start: 03/12/23 10:02 Freq: Status: Active Protocol: Document 05/09/23 14:07 ED (Rec: 05/09/23 14:19 ED [id number]) Physical Therapy Assessment Goals Three Impairment Functional mobility, independence Long-Term Goal (LTG) Patient and will be independent in home/community fitness program for maintenance of function. LTG Duration 8 weeks (05/07/23) - progressing 04/23/23 Two Impairment Balance Direct Entry Midwife Goal (LTG) Patient will improve TUG score to <12 seconds indicating low risk for falls. LTG Duration 8 weeks (05/07/23) - no progress 04/23/23 Assessment Summary Assessment Pt required frequent rest breaks throughout treatment session. Pt responds well to visual and tactile cues to improve amplitude of movements and/or speed of movements. He did well when given a visual cue for where to place his foot when ambluating. Physical Therapy Plan Frequency and Duration Frequency of Treatment 1x/Week Duration of treatment (weeks) 8 Plan of Care Start Date 04/23/23 Plan of Care End Date 06/18/23 Next Visit Focus/Plan Next Note Type Treatment Note Next Visit Plan NuStep (big), STS, ball catch, big steps w/ visual cues, ball dribble, high knees
--- NOTE | 2023-05-16 15:01 | PT.OTN ---
Current Diagnoses Unsteadiness on feet (05/16/23) Physical Therapy Treatment Note PT-OP-A Visit Information Start: 03/12/23 10:02 Freq: Status: Active Protocol: Document 05/16/23 14:57 ED (Rec: 05/16/23 15:01 ED [id number]) Out-Patient Physical Therapy Visit Information Visit Information Visit Type Treatment Note Visit Start Time 14:15 Visit Stop Time 15:00 Total Visit Minutes 45 Visit Number 7 PT-OP-B Current Condition Start: 03/12/23 10:02 Freq: Status: Active Protocol: Document 03/12/23 10:02 ES (Rec: 03/12/23 10:57 ES [id number]) Current Condition History of Current Condition Current Complaints Difficulty walking, unsteadiness History of Current Condition Patient was diagnosed with Parkinson's Disease in November 2021, though had been noticing symptoms for a while before that though. Is being followed by a neurologist and was put on medication but states it doesn't seem to be making much difference. No falls in the last year. Also recently diagnosed with dementia. ( present during visit and provided history). Has been using a walking stick recently for walking outside. stated they walk during good weather but have trouble figuring out ways to exercise in inclement weather especially during winter months. Treatment Goals Patient/Caregiver Goals To be able to walk easier, to have better balance. PT-OP-C Subjective Start: 03/12/23 10:02 Freq: Status: Active Protocol: Document 05/16/23 14:57 ED (Rec: 05/16/23 15:01 ED [id number]) OP-PT Subjective Patient Comments Patient Comments Pt spouse states that only on Saturday are they doing any exercise routine. The routine is performed by their caregiver who comes for 3 hours on Wednesdays. PT-OP-D Balance Start: 03/12/23 10:02 Freq: Status: Active Protocol: Document 04/23/23 15:42 ES (Rec: 04/23/23 16:10 ES [id number]) Balance Tests Hickman Balance Test Hickman Balance Test Score 40 (<45 indicates increased risk for falls) PT-OP-E Functional Tests Start: 03/12/23 10:02 Freq: Status: Active Protocol: Document 04/23/23 15:42 ES (Rec: 04/23/23 16:10 ES [id number]) Functional Tests Five Times Sit to Stand Test Score 27.4 seconds Timed Up and Go (TUG) Score 20 seconds Comments no AD TUG Impairment Rating 100% Impaired (Score 20) PT-OP-G Mobility & Gait Start: 03/12/23 10:02 Freq: Status: Active Protocol: Document 04/23/23 15:42 ES (Rec: 04/23/23 16:10 ES [id number]) OP Gait Assessment Gait Deviations General Gait Pattern Decreased Stride Length, Decreased Feet Clearance, Festinating,Flexed Trunk Comments Gait Comments Ambulates with intermittent shuffling pattern, able to improve with cueing. PT-OP-Q Treatments Start: 03/12/23 10:02 Freq: Status: Active Protocol: Document 05/16/23 14:57 ED (Rec: 05/16/23 15:01 ED [id number]) Therapeutic Exercises Sitting Exercises STS Reps/Minutes 3x10 Comments chair + foam pad Standing Exercises ball slam Standing Exercise Name PB ball slam Equipment Used physioball Reps/Minutes 5x10 Comments cued to get ball to reach ceiling standing ball dribble Reps/Minutes 2x10 Comments physioball dribble Hip flexion Reps/Minutes 3x10 reps/leg Comments in // bars and B UE support Other Exercises ball catch Reps/Minutes 3x15 Comments sitting PT-OP-T Assessment and Plan Start: 03/12/23 10:02 Freq: Status: Active Protocol: Document 05/16/23 14:57 ED (Rec: 05/16/23 15:01 ED [id number]) Physical Therapy Assessment Assessment Summary Assessment Pt required frequent rest breaks throughout treatment session. Pt responds well to visual and tactile cues to improve amplitude of movements and/or speed of movements. PT focused on large amplitude movements; patient requires max cuing for continued adherance to the large movements. Spoke briefly c/ spouse regarding doing more frequent but short sessions at home. Physical Therapy Plan Next Visit Focus/Plan Next Note Type Treatment Note Next Visit Plan NuStep (big), STS, ball catch, big steps w/ visual cues, ball dribble, high knees
--- NOTE | 2023-05-23 15:01 | PT.OTN ---
Current Diagnoses Unsteadiness on feet (05/23/23) Physical Therapy Treatment Note PT-OP-A Visit Information Start: 03/12/23 10:02 Freq: Status: Active Protocol: Document 05/23/23 14:57 ED (Rec: 05/23/23 15:01 ED [id number]) Out-Patient Physical Therapy Visit Information Visit Information Visit Type Treatment Note Visit Note 05/23 Visit Start Time 14:15 Visit Stop Time 14:55 Total Visit Minutes 40 Visit Number 8 PT-OP-B Current Condition Start: 03/12/23 10:02 Freq: Status: Active Protocol: Document 03/12/23 10:02 ES (Rec: 03/12/23 10:57 ES [id number]) Current Condition History of Current Condition Current Complaints Difficulty walking, unsteadiness History of Current Condition Patient was diagnosed with Parkinson's Disease in November 2021, though had been noticing symptoms for a while before that though. Is being followed by a neurologist and was put on medication but states it doesn't seem to be making much difference. No falls in the last year. Also recently diagnosed with dementia. ( present during visit and provided history). Has been using a walking stick recently for walking outside. stated they walk during good weather but have trouble figuring out ways to exercise in inclement weather especially during winter months. Treatment Goals Patient/Caregiver Goals To be able to walk easier, to have better balance. PT-OP-C Subjective Start: 03/12/23 10:02 Freq: Status: Active Protocol: Document 05/23/23 14:57 ED (Rec: 05/23/23 15:01 ED [id number]) OP-PT Subjective Patient Comments Patient Comments pt spouse states they have no exercise equipment at home that she can use. States that her has good and bad days. PT-OP-D Balance Start: 03/12/23 10:02 Freq: Status: Active Protocol: Document 04/23/23 15:42 ES (Rec: 04/23/23 16:10 ES [id number]) Balance Tests Hickman Balance Test Hickman Balance Test Score 40 (<45 indicates increased risk for falls) PT-OP-E Functional Tests Start: 03/12/23 10:02 Freq: Status: Active Protocol: Document 04/23/23 15:42 ES (Rec: 04/23/23 16:10 ES [id number]) Functional Tests Five Times Sit to Stand Test Score 27.4 seconds Timed Up and Go (TUG) Score 20 seconds Comments no AD TUG Impairment Rating 100% Impaired (Score 20) PT-OP-G Mobility & Gait Start: 03/12/23 10:02 Freq: Status: Active Protocol: Document 04/23/23 15:42 ES (Rec: 04/23/23 16:10 ES [id number]) OP Gait Assessment Gait Deviations General Gait Pattern Decreased Stride Length, Decreased Feet Clearance, Festinating,Flexed Trunk Comments Gait Comments Ambulates with intermittent shuffling pattern, able to improve with cueing. PT-OP-Q Treatments Start: 03/12/23 10:02 Freq: Status: Active Protocol: Document 05/23/23 14:57 ED (Rec: 05/23/23 15:01 ED [id number]) Cardio Equipment Recumbent Stepper (Sci-Fit) Duration (Minutes) 5 Resistance 7 Other 3x30 on 30 off high RPM after 5 minute warm up Therapeutic Exercises Sitting Exercises STS Reps/Minutes 3x10 Comments chair + foam pad Standing Exercises ball slam Standing Exercise Name PB ball slam Equipment Used physioball Reps/Minutes 5x10 Comments cued to get ball to reach ceiling Hip flexion Reps/Minutes 3x10 reps/leg Comments in // bars and B UE support Other Exercises ball catch Reps/Minutes 3x15 Comments sitting Neuro Re-Education Treatment Coordination Activities ball catch Equipment medium ball, small ball Reps/Duration 3x10 PT-OP-T Assessment and Plan Start: 03/12/23 10:02 Freq: Status: Active Protocol: Document 05/23/23 14:57 ED (Rec: 05/23/23 15:01 ED [id number]) Physical Therapy Assessment Goals Three Impairment Functional mobility, independence Curator Goal (LTG) Patient and will be independent in home/community fitness program for maintenance of function. LTG Duration 8 weeks (05/07/23) - progressing 04/23/23 Two Impairment Balance Curator Goal (LTG) Patient will improve TUG score to <12 seconds indicating low risk for falls. LTG Duration 8 weeks (05/07/23) - no progress 04/23/23 One Impairment Weakness Short Term Goal (STG) Patient will decrease 5xSTS score to <15 seconds indicating clinically significant change in functional strength. STG Duration 4 weeks (04/09/23) - no progress 04/23/23 Assessment Summary Assessment Pt did better today than previous sessions. Exercises were focused on fast and large amplitude movements including ball slams, sit to stands, fast walking, and catching small physioballs. Spoke w/ pt spouse regarding doing exercises at home for 10-30 minutes c/ patient. Physical Therapy Plan Frequency and Duration Frequency of Treatment 1x/Week Duration of treatment (weeks) 8 Plan of Care Start Date 04/23/23 Plan of Care End Date 06/18/23 Next Visit Focus/Plan Next Note Type Treatment Note Next Visit Plan NuStep (big), STS, ball catch, big steps w/ visual cues, ball dribble, high knees
--- NOTE | 2023-05-30 15:06 | PT.OTN ---
Current Diagnoses Unsteadiness on feet (05/30/23) Physical Therapy Treatment Note PT-OP-A Visit Information Start: 03/12/23 10:02 Freq: Status: Active Protocol: Document 05/30/23 15:03 ED (Rec: 05/30/23 15:05 ED [id number]) Out-Patient Physical Therapy Visit Information Visit Information Visit Type Treatment Note Visit Note 06/23 Visit Start Time 14:15 Visit Stop Time 15:00 Total Visit Minutes 45 Visit Number 9 PT-OP-B Current Condition Start: 03/12/23 10:02 Freq: Status: Active Protocol: Document 03/12/23 10:02 ES (Rec: 03/12/23 10:57 ES [id number]) Current Condition History of Current Condition Current Complaints Difficulty walking, unsteadiness History of Current Condition Patient was diagnosed with Parkinson's Disease in November 2021, though had been noticing symptoms for a while before that though. Is being followed by a neurologist and was put on medication but states it doesn't seem to be making much difference. No falls in the last year. Also recently diagnosed with dementia. ( present during visit and provided history). Has been using a walking stick recently for walking outside. stated they walk during good weather but have trouble figuring out ways to exercise in inclement weather especially during winter months. Treatment Goals Patient/Caregiver Goals To be able to walk easier, to have better balance. PT-OP-C Subjective Start: 03/12/23 10:02 Freq: Status: Active Protocol: Document 05/30/23 15:03 ED (Rec: 05/30/23 15:05 ED [id number]) OP-PT Subjective Patient Comments Patient Comments Pt spouse states that he is having a bad day in regards to his mobility and cognition today. PT-OP-D Balance Start: 03/12/23 10:02 Freq: Status: Active Protocol: Document 04/23/23 15:42 ES (Rec: 04/23/23 16:10 ES [id number]) Balance Tests Hickman Balance Test Hickman Balance Test Score 40 (<45 indicates increased risk for falls) PT-OP-E Functional Tests Start: 03/12/23 10:02 Freq: Status: Active Protocol: Document 04/23/23 15:42 ES (Rec: 04/23/23 16:10 ES [id number]) Functional Tests Five Times Sit to Stand Test Score 27.4 seconds Timed Up and Go (TUG) Score 20 seconds Comments no AD TUG Impairment Rating 100% Impaired (Score 20) PT-OP-G Mobility & Gait Start: 03/12/23 10:02 Freq: Status: Active Protocol: Document 04/23/23 15:42 ES (Rec: 04/23/23 16:10 ES [id number]) OP Gait Assessment Gait Deviations General Gait Pattern Decreased Stride Length, Decreased Feet Clearance, Festinating,Flexed Trunk Comments Gait Comments Ambulates with intermittent shuffling pattern, able to improve with cueing. PT-OP-Q Treatments Start: 03/12/23 10:02 Freq: Status: Active Protocol: Document 05/30/23 15:03 ED (Rec: 05/30/23 15:05 ED [id number]) Cardio Equipment Recumbent Stepper (Sci-Fit) Duration (Minutes) 5 Resistance 7 Other 3x30 on 30 off high RPM after 5 minute warm up Therapeutic Exercises Sitting Exercises STS Reps/Minutes 3x10 Comments chair + foam pad Standing Exercises ball slam Standing Exercise Name PB ball slam Equipment Used physioball Reps/Minutes 5x10 Comments cued to get ball to reach ceiling Hip flexion Reps/Minutes 3x10 reps/leg Comments in // bars and B UE support Other Exercises ball catch Reps/Minutes 3x15 Comments sitting PT-OP-T Assessment and Plan Start: 03/12/23 10:02 Freq: Status: Active Protocol: Document 05/30/23 15:03 ED (Rec: 05/30/23 15:05 ED [id number]) Physical Therapy Assessment Goals Three Impairment Functional mobility, independence Storage Worker Goal (LTG) Patient and will be independent in home/community fitness program for maintenance of function. LTG Duration 8 weeks (05/07/23) - progressing 04/23/23 Two Impairment Balance Longterm Goal (LTG) Patient will improve TUG score to <12 seconds indicating low risk for falls. LTG Duration 8 weeks (05/07/23) - no progress 04/23/23 One Impairment Weakness Short Term Goal (STG) Patient will decrease 5xSTS score to <15 seconds indicating clinically significant change in functional strength. STG Duration 4 weeks (04/09/23) - no progress 04/23/23 Physical Therapy Plan Frequency and Duration Frequency of Treatment 1x/Week Duration of treatment (weeks) 8 Plan of Care Start Date 04/23/23 Plan of Care End Date 06/18/23 Next Visit Focus/Plan Next Note Type Treatment Note Next Visit Plan retest 5xSTS, TUG
--- NOTE | 2023-06-04 15:21 | PT.OTN ---
Current Diagnoses Unsteadiness on feet (06/04/23) Physical Therapy Treatment Note PT-OP-A Visit Information Start: 03/12/23 10:02 Freq: Status: Active Protocol: Document 06/04/23 15:07 ED (Rec: 06/04/23 15:08 ED [id number]) Out-Patient Physical Therapy Visit Information Visit Information Visit Type Progress Note Visit Note 07/23 Visit Start Time 10:45 Visit Stop Time 11:25 Total Visit Minutes 40 Visit Number 10 PT-OP-B Current Condition Start: 03/12/23 10:02 Freq: Status: Active Protocol: Document 03/12/23 10:02 ES (Rec: 03/12/23 10:57 ES [id number]) Current Condition History of Current Condition Current Complaints Difficulty walking, unsteadiness History of Current Condition Patient was diagnosed with Parkinson's Disease in November 2021, though had been noticing symptoms for a while before that though. Is being followed by a neurologist and was put on medication but states it doesn't seem to be making much difference. No falls in the last year. Also recently diagnosed with dementia. ( present during visit and provided history). Has been using a walking stick recently for walking outside. stated they walk during good weather but have trouble figuring out ways to exercise in inclement weather especially during winter months. Treatment Goals Patient/Caregiver Goals To be able to walk easier, to have better balance. PT-OP-C Subjective Start: 03/12/23 10:02 Freq: Status: Active Protocol: Document 06/04/23 15:07 ED (Rec: 06/04/23 15:08 ED [id number]) OP-PT Subjective Patient Comments Patient Comments Pt spouse states they have a f /u with the neurologist next week. Spouse states that the patient is having a bad day in regards to cognition and physical capabilities. PT-OP-D Balance Start: 03/12/23 10:02 Freq: Status: Active Protocol: Document 06/04/23 15:03 ED (Rec: 06/04/23 15:21 ED [id number]) Hickman Balance Assessment Evaluation Sitting to Standing Ability Independent w/out Hands Unsupported Stance Supervision- 2 minutes Sitting Unsupported, Feet on Floor Safely- 2 minutes Standing to Sitting Ability Safely, Minimal Hand Use Transfer Ability Safely, Minimal Hand Use Unsupported Stance- Eyes Closed 3 seconds Unsupported Stance- Eyes Open Independent, 1 minute Reaching Forward Standing Safely, 5 inches Pick- Up Object From Floor Supervision Look Behind Shoulder - Standing Shifts Weight Well Turning 360 Degrees Turns slowly, but safely Unsupported Stance, Alternating Feet on Assist to Prevent Fall Stair Unsupported Tandem Stance Small Step- 30 seconds Unilateral Leg Stance Unable,assist to not fall Total Score Hickman Total Score (out of 56 points) 39 Hickman Impairment Rating 20 to 39% Impaired (Score 34- 44) PT-OP-E Functional Tests Start: 03/12/23 10:02 Freq: Status: Active Protocol: Document 06/04/23 15:03 ED (Rec: 06/04/23 15:21 ED [id number]) Functional Tests Five Times Sit to Stand Test Score 20 Timed Up and Go (TUG) Score 28 Comments difficulty following instructions TUG Impairment Rating 100% Impaired (Score 20) PT-OP-G Mobility & Gait Start: 03/12/23 10:02 Freq: Status: Active Protocol: Document 04/23/23 15:42 ES (Rec: 04/23/23 16:10 ES [id number]) OP Gait Assessment Gait Deviations General Gait Pattern Decreased Stride Length, Decreased Feet Clearance, Festinating,Flexed Trunk Comments Gait Comments Ambulates with intermittent shuffling pattern, able to improve with cueing. PT-OP-Q Treatments Start: 03/12/23 10:02 Freq: Status: Active Protocol: Document 06/04/23 15:03 ED (Rec: 06/04/23 15:21 ED [id number]) Cardio Equipment Recumbent Stepper (Sci-Fit) Duration (Minutes) 5 Resistance 7 Other 3x30 on 30 off high RPM after 5 minute warm up Therapeutic Exercises Sitting Exercises STS Reps/Minutes 3x10 Comments chair + foam pad Standing Exercises ball slam Standing Exercise Name PB ball slam Equipment Used physioball Reps/Minutes 5x10 Comments cued to get ball to reach ceiling Hip flexion Reps/Minutes 3x10 reps/leg Comments in // bars and B UE support Other Exercises ball catch Reps/Minutes 3x15 Comments sitting Neuro Re-Education Treatment Balance Activities Hickman Comments results above Coordination Activities ball catch Equipment medium ball, small ball Reps/Duration 3x10 PT-OP-T Assessment and Plan Start: 03/12/23 10:02 Freq: Status: Active Protocol: Document 06/04/23 15:03 ED (Rec: 06/04/23 15:21 ED [id number]) Physical Therapy Assessment Rehab Potential Rehabilitation Potential Poor Goals Three Impairment Functional mobility, independence Nursing Home Goal (LTG) Patient and will be independent in home/community fitness program for maintenance of function. LTG Duration MET Two Impairment Balance Nursing Home Goal (LTG) Patient will improve TUG score to <12 seconds indicating low risk for falls. LTG Duration NOT MET One Impairment Weakness Short Term Goal (STG) Patient will decrease 5xSTS score to <15 seconds indicating clinically significant change in functional strength. STG Duration NOT MET Progress Towards Goals Progress Towards Goals Slow Progress due to Attendance Issues,Slow Progress due to Medical Issues Progress Comments no progress made in objective tests such as 5x sit<>stand, TUG, and Hickman Balance Assessment Summary Assessment Patient has been on and off with physical therapy since starting at the end of February. PT had patient perform the same tests he did during evaluation including the Timed Up and Go test, 5 time sit to stand test, and Hickman Balance Score. Pt had an increase in time required for the TUG and 5x sit<>stand test. Additionally, his score during the Hickman Balance test also did not improve and was slightly worse than when he started. Due to patient cognition, it has been difficult to have him perform the interventions and exercises in an appropriate manner as patient struggles to apply the verbal and tactile cues to the drills. I think physical therapy may be helpful to slow down further functional mobility decline but I do not anticipate it helping him improve it at this point in time. Physical Therapy Plan Frequency and Duration Frequency of Treatment 1x/Week Duration of treatment (weeks) 8 Plan of Care Start Date 04/23/23 Plan of Care End Date 06/18/23 Next Visit Focus/Plan Next Note Type Discharge Summary
--- NOTE | 2023-06-06 15:12 | PT.OTN ---
Current Diagnoses Unsteadiness on feet (06/04/23) Physical Therapy Treatment Note PT-OP-A Visit Information Start: 03/12/23 10:02 Freq: Status: Active Protocol: Document 06/04/23 15:07 ED (Rec: 06/04/23 15:08 ED [id number]) Out-Patient Physical Therapy Visit Information Visit Information Visit Type Progress Note Visit Note 07/23 Visit Start Time 10:45 Visit Stop Time 11:25 Total Visit Minutes 40 Visit Number 10 PT-OP-B Current Condition Start: 03/12/23 10:02 Freq: Status: Active Protocol: Document 03/12/23 10:02 ES (Rec: 03/12/23 10:57 ES [id number]) Current Condition History of Current Condition Current Complaints Difficulty walking, unsteadiness History of Current Condition Patient was diagnosed with Parkinson's Disease in November 2021, though had been noticing symptoms for a while before that though. Is being followed by a neurologist and was put on medication but states it doesn't seem to be making much difference. No falls in the last year. Also recently diagnosed with dementia. ( present during visit and provided history). Has been using a walking stick recently for walking outside. stated they walk during good weather but have trouble figuring out ways to exercise in inclement weather especially during winter months. Treatment Goals Patient/Caregiver Goals To be able to walk easier, to have better balance. PT-OP-C Subjective Start: 03/12/23 10:02 Freq: Status: Active Protocol: Document 06/04/23 15:07 ED (Rec: 06/04/23 15:08 ED [id number]) OP-PT Subjective Patient Comments Patient Comments Pt spouse states they have a f /u with the neurologist next week. Spouse states that the patient is having a bad day in regards to cognition and physical capabilities. PT-OP-D Balance Start: 03/12/23 10:02 Freq: Status: Active Protocol: Document 06/04/23 15:03 ED (Rec: 06/04/23 15:21 ED [id number]) Hickman Balance Assessment Evaluation Sitting to Standing Ability Independent w/out Hands Unsupported Stance Supervision- 2 minutes Sitting Unsupported, Feet on Floor Safely- 2 minutes Standing to Sitting Ability Safely, Minimal Hand Use Transfer Ability Safely, Minimal Hand Use Unsupported Stance- Eyes Closed 3 seconds Unsupported Stance- Eyes Open Independent, 1 minute Reaching Forward Standing Safely, 5 inches Pick- Up Object From Floor Supervision Look Behind Shoulder - Standing Shifts Weight Well Turning 360 Degrees Turns slowly, but safely Unsupported Stance, Alternating Feet on Assist to Prevent Fall Stair Unsupported Tandem Stance Small Step- 30 seconds Unilateral Leg Stance Unable,assist to not fall Total Score Hickman Total Score (out of 56 points) 39 Hickman Impairment Rating 20 to 39% Impaired (Score 34- 44) PT-OP-E Functional Tests Start: 03/12/23 10:02 Freq: Status: Active Protocol: Document 06/04/23 15:03 ED (Rec: 06/04/23 15:21 ED [id number]) Functional Tests Five Times Sit to Stand Test Score 20 Timed Up and Go (TUG) Score 28 Comments difficulty following instructions TUG Impairment Rating 100% Impaired (Score 20) PT-OP-G Mobility & Gait Start: 03/12/23 10:02 Freq: Status: Active Protocol: Document 04/23/23 15:42 ES (Rec: 04/23/23 16:10 ES [id number]) OP Gait Assessment Gait Deviations General Gait Pattern Decreased Stride Length, Decreased Feet Clearance, Festinating,Flexed Trunk Comments Gait Comments Ambulates with intermittent shuffling pattern, able to improve with cueing. PT-OP-Q Treatments Start: 03/12/23 10:02 Freq: Status: Active Protocol: Document 06/04/23 15:03 ED (Rec: 06/04/23 15:21 ED [id number]) Cardio Equipment Recumbent Stepper (Sci-Fit) Duration (Minutes) 5 Resistance 7 Other 3x30 on 30 off high RPM after 5 minute warm up Therapeutic Exercises Sitting Exercises STS Reps/Minutes 3x10 Comments chair + foam pad Standing Exercises ball slam Standing Exercise Name PB ball slam Equipment Used physioball Reps/Minutes 5x10 Comments cued to get ball to reach ceiling Hip flexion Reps/Minutes 3x10 reps/leg Comments in // bars and B UE support Other Exercises ball catch Reps/Minutes 3x15 Comments sitting Neuro Re-Education Treatment Balance Activities Hickman Comments results above Coordination Activities ball catch Equipment medium ball, small ball Reps/Duration 3x10 PT-OP-T Assessment and Plan Start: 03/12/23 10:02 Freq: Status: Active Protocol: Document 06/04/23 15:03 ED (Rec: 06/04/23 15:21 ED [id number]) Physical Therapy Assessment Rehab Potential Rehabilitation Potential Poor Goals Three Impairment Functional mobility, independence Penitentiary Goal (LTG) Patient and will be independent in home/community fitness program for maintenance of function. LTG Duration MET Two Impairment Balance Penitentiary Goal (LTG) Patient will improve TUG score to <12 seconds indicating low risk for falls. LTG Duration NOT MET One Impairment Weakness Short Term Goal (STG) Patient will decrease 5xSTS score to <15 seconds indicating clinically significant change in functional strength. STG Duration NOT MET Progress Towards Goals Progress Towards Goals Slow Progress due to Attendance Issues,Slow Progress due to Medical Issues Progress Comments no progress made in objective tests such as 5x sit<>stand, TUG, and Hickman Balance Assessment Summary Assessment Patient has been on and off with physical therapy since starting at the end of February. PT had patient perform the same tests he did during evaluation including the Timed Up and Go test, 5 time sit to stand test, and Hickman Balance Score. Pt had an increase in time required for the TUG and 5x sit<>stand test. Additionally, his score during the Hickman Balance test also did not improve and was slightly worse than when he started. Due to patient cognition, it has been difficult to have him perform the interventions and exercises in an appropriate manner as patient struggles to apply the verbal and tactile cues to the drills. I think physical therapy may be helpful to slow down further functional mobility decline but I do not anticipate it helping him improve it at this point in time. Physical Therapy Plan Frequency and Duration Frequency of Treatment 1x/Week Duration of treatment (weeks) 8 Plan of Care Start Date 04/23/23 Plan of Care End Date 06/18/23 Next Visit Focus/Plan Next Note Type Discharge Summary
--- NOTE | 2023-06-18 09:06 | PT.OPDS ---
Current Diagnoses Unsteadiness on feet (06/04/23) Visit Care Team Role Provider Type Pola Avila MD Family Provider Physician Primary Care Provider Specialty: Internal Medicine Address: [address] [place] [address], [facility] [address], [address] Email: [email or web address] Michelle Morales MD Attending Provider Non-Staff Referring Provider Specialty: Neurology Address: [address] [place], [address] Email: Visit Number Visit Number 10 Discharge Summary PT-OP-B Current Condition Start: 03/12/23 10:02 Freq: Status: Active Protocol: Document 03/12/23 10:02 ES (Rec: 03/12/23 10:57 ES [id number]) Current Condition History of Current Condition Current Complaints Difficulty walking, unsteadiness History of Current Condition Patient was diagnosed with Parkinson's Disease in November 2021, though had been noticing symptoms for a while before that though. Is being followed by a neurologist and was put on medication but states it doesn't seem to be making much difference. No falls in the last year. Also recently diagnosed with dementia. ( present during visit and provided history). Has been using a walking stick recently for walking outside. stated they walk during good weather but have trouble figuring out ways to exercise in inclement weather especially during winter months. Treatment Goals Patient/Caregiver Goals To be able to walk easier, to have better balance. PT-OP-C Subjective Start: 03/12/23 10:02 Freq: Status: Active Protocol: Document 06/04/23 15:07 ED (Rec: 06/04/23 15:08 ED [id number]) OP-PT Subjective Patient Comments Patient Comments Pt spouse states they have a f /u with the neurologist next week. Spouse states that the patient is having a bad day in regards to cognition and physical capabilities. PT-OP-D Balance Start: 03/12/23 10:02 Freq: Status: Active Protocol: Document 06/04/23 15:03 ED (Rec: 06/04/23 15:21 ED [id number]) Hickman Balance Assessment Evaluation Sitting to Standing Ability Independent w/out Hands Unsupported Stance Supervision- 2 minutes Sitting Unsupported, Feet on Floor Safely- 2 minutes Standing to Sitting Ability Safely, Minimal Hand Use Transfer Ability Safely, Minimal Hand Use Unsupported Stance- Eyes Closed 3 seconds Unsupported Stance- Eyes Open Independent, 1 minute Reaching Forward Standing Safely, 5 inches Pick- Up Object From Floor Supervision Look Behind Shoulder - Standing Shifts Weight Well Turning 360 Degrees Turns slowly, but safely Unsupported Stance, Alternating Feet on Assist to Prevent Fall Stair Unsupported Tandem Stance Small Step- 30 seconds Unilateral Leg Stance Unable,assist to not fall Total Score Hickman Total Score (out of 56 points) 39 Hickman Impairment Rating 20 to 39% Impaired (Score 34- 44) PT-OP-E Functional Tests Start: 03/12/23 10:02 Freq: Status: Active Protocol: Document 06/04/23 15:03 ED (Rec: 06/04/23 15:21 ED [id number]) Functional Tests Five Times Sit to Stand Test Score 20 Timed Up and Go (TUG) Score 28 Comments difficulty following instructions TUG Impairment Rating 100% Impaired (Score 20) PT-OP-G Mobility & Gait Start: 03/12/23 10:02 Freq: Status: Active Protocol: Document 04/23/23 15:42 ES (Rec: 04/23/23 16:10 ES [id number]) OP Gait Assessment Gait Deviations General Gait Pattern Decreased Stride Length, Decreased Feet Clearance, Festinating,Flexed Trunk Comments Gait Comments Ambulates with intermittent shuffling pattern, able to improve with cueing. PT-OP-T Assessment and Plan Start: 03/12/23 10:02 Freq: Status: Active Protocol: Document 06/18/23 09:03 ED (Rec: 06/18/23 09:06 ED [id number]) Physical Therapy Assessment Goals Three Impairment Functional mobility, independence Half-Way Goal (LTG) Patient and will be independent in home/community fitness program for maintenance of function. LTG Duration MET Two Impairment Balance Half-Way Goal (LTG) Patient will improve TUG score to <12 seconds indicating low risk for falls. LTG Duration NOT MET One Impairment Weakness Short Term Goal (STG) Patient will decrease 5xSTS score to <15 seconds indicating clinically significant change in functional strength. STG Duration NOT MET Progress Towards Goals Progress Towards Goals Slow Progress due to Activity Tolerance,Slow Progress due to Attendance Issues,Slow Progress due to Medical Issues Progress Comments no progress made in objective tests such as 5x sit<>stand, TUG, and Hickman Balance Assessment Summary Assessment Pt will be discharged from PT services at this time. Pt did not make progress if regards to functional mobility and strength as demonstrated on the objective tests performed at evaluation and then at his most recent PT visit. Pt did not respond to interventions focused on Parkinson's-like deficits. Additionally, patient was limited by dementia and difficulty following verbal and visual instructions during treatment. Pt will be discharged from PT . Physical Therapy Plan Discharge Physical Therapy Discharge Reasons Plateau in Progress
== END 2023-06-18 15:06 | disposition home or self-care (01) ==
LOC: PHYS 10:45
PROVIDERS: Family Provider Internal Medicine; PCP Internal Medicine; Referring Provider Psychiatry & Neurology Neurology; Visit Provider Psychiatry & Neurology Neurology
DX: R26.81 Unsteadiness on feet (principal)
CPT/HCPCS: 97110; 97112; 97161; 97530

== ENCOUNTER 2023-06-16 16:03 | Inpatient (IN) | payer MEDICARE, BC, SELFPAY ==
[2023-06-16] VITALS (16 sets, daily range): BP systolic 146–165; BP diastolic 72–83; PULSE 52–67; RESP 16–22; TEMP 36.3; O2SAT 94–98; BMI 18.4
--- NOTE | 2023-06-16 16:18 | PC.NURSE ---
and daughter at bedside and report that pt has had more difficulty ambulating, increased weakness and could not get off the toilet this morning. also states that pt has been becoming increasingly agitated.
--- NOTE | 2023-06-16 16:30 | DI.RAD.S_ITS ---
PROCEDURE: XR CHEST 1V INDICATIONS: WORSENING AGITATION TECHNIQUE: One view of the chest was acquired. COMPARISON: [facility], CT, CT HEAD/BRAIN WO CON, 06/16/2023, 16:45. [facility], CT, CT CERVICAL SPINE WO CON, 06/16/2023, 16:45. FINDINGS: Surgical changes and devices: None. Lungs and pleura: On this semiupright portable chest examination, no large pneumothorax or large pleural effusions are seen. No focal infiltrates are seen. Mediastinum: The cardiac contours are within normal limits. The aorta demonstrates calcification and tortuosity. There is a moderate to large hiatal hernia. Bones and chest wall: No displaced rib fracture can be seen. Age-appropriate bony degenerative changes are seen. No suspicious bony lesions. Overlying soft tissues appear unremarkable. IMPRESSION: No acute cardiopulmonary process is seen. No focal infiltrates are seen. Moderate to large hiatal hernia. Dictated by: Jeffrey Orellana M.D. on 06/16/2023 at 16:18 Approved by: Jeffrey Orellana M.D. on 06/16/2023 at 16:19
--- NOTE | 2023-06-16 16:30 | DI.CT.S_ITS ---
PROCEDURE: CT CERVICAL SPINE WO CON INDICATIONS: FREQUENT FALLS TECHNIQUE: Noncontrast 3 mm thick sections acquired from the skull base to the T4 level. Sagittal and coronal reformats were then constructed. For radiation dose reduction, the following was used: automated exposure control, adjustment of mA and/or kV according to patient size. COMPARISON: [facility], CR, XR CHEST 1V, 06/16/2023, 16:51. [facility], CT, CT HEAD/BRAIN WO CON, 06/16/2023, 16:45. FINDINGS: Image quality: Excellent. Bones: No fractures or dislocations. Visualized superior ribs are intact. Focal degenerative change is seen involving the C1-C2 interface anteriorly. There is at least moderate disc space narrowing seen at C4-C5, C5-C6, and C6-C7. Posteriorly directed endplate osteophytes are seen at these levels. Soft tissues: Prevertebral soft tissues are normal in thickness. No paravertebral hematomas. No apical pneumothoraces. Mild bronchiectasis can be seen at the lung apices. IMPRESSION: Negative for fracture. Multiple levels of significant cervical spine degenerative change can be seen. Dictated by: Jeffrey Orellana M.D. on 06/16/2023 at 16:17 Approved by: Jeffrey Orellana M.D. on 06/16/2023 at 16:18
--- NOTE | 2023-06-16 16:34 | ED_ITS ---
HPI - Altered Mental Status <Ana Salcedo MD - Last Filed: 06/17/23 12:35> General Chief Complaint: Altered Mental Status Stated Complaint: agitated dementia Time Seen by Provider: 06/16/23 16:11 History of Present Illness HPI narrative: 77yoM with PMH dementia, parkinson's disease presents by EMS from home for worsening agitation and outburst. Patient has had numerous unwitnessed falls and has been acting out at home. Mother and daughter state that patient has occasionally become violent. Patient has also had numerous unwitnessed falls. Patient is on the waiting list for a memory care unit. Primary care doctor recently changed patient's Seroquel and added 2mg ativan TID. Related Data Home Medications Medication Instructions Recorded Confirmed cholecalciferol (vitamin D3) 50 100 mcg PO DAILY 03/25/23 06/16/23 mcg (2,000 unit) capsule Previous Rx's Medication Instructions Recorded lorazepam 2 mg tablet 2 mg PO TID PRN severe agitation 06/14/23 #60 tabs olanzapine 5 mg tablet 5 mg PO BID #60 tabs 06/14/23 Allergies Allergy/AdvReac Type Severity Reaction Status Date / Time Penicillins [PENICILLINS] Allergy Mild Verified 06/16/23 17:27 Review of Systems <Ana Salcedo MD - Last Filed: 06/17/23 12:35> Review of Systems Narrative: Advanced dementia ROS Unobtainable: Unobtainable due to medical condition Patient History <Ana Salcedo MD - Last Filed: 06/17/23 12:35> Medical History (Updated 06/17/23 @ 12:35 by Ana Salcedo MD) Allergic rhinitis (05/03/14) BXO (balanitis xerotica obliterans) Chicken pox (~1952) Constipation Dementia Elevated prostate specific antigen (PSA) (02/04/18) Hyperlipidemia, unspecified (06/28/11) Measles (~1953) Mumps (~1958) Rubella (~1963) Surgical History Anesthesia Cut of face (~194) Hx of inguinal hernia surgery (~01/18/03) Urethral stricture (~10/10/02) Family History Father Heart disease Mother Cancer Social History household members: spouse Smoking Status: Never smoker alcohol intake: never Smoking Status: Never smoker Exam <Ana Salcedo MD - Last Filed: 06/17/23 12:35> Initial Vital Signs Initial Vital Signs: Vital Signs Pulse Rate 60 06/16/23 16:08 Pulse Oximetry 97 06/16/23 16:08 Const: frail, nontoxic, no acute distress Eyes: PERRL, EOMI, conjunctiva normal ENT: Atraumatic, dentition normal, mucous membranes moist Cardiac: regular rate, regular rhythm RESP: unlabored, clear bilaterally, no wheezing GI: Atraumatic, soft, nontender, nondistended, no rebound, no guarding MSK: Atraumatic, full range of motion, pulses equal Skin: Warm, Dry, intact, no rashes Neuro: AO x1, CN II-XII grossly intact, moves all extremities Psych: advanced dementia <Kimberlyn Rubalcava DO - Last Filed: 06/18/23 01:36> Initial Vital Signs Initial Vital Signs: Vital Signs Pulse Rate 60 06/16/23 16:08 Pulse Oximetry 97 06/16/23 16:08 Course <Ana Salcedo MD - Last Filed: 06/17/23 12:35> Course Course Narrative: Worsening behavioral disturbance and advanced dementia with outbursts and frequent falls. No obvious physical exam abnormalities. Will obtain labs and appropriate imaging. Orders Ordered: Acetaminophen (Acetaminophen 325 Mg Tablet) 650 mg PO Q4HR PRN PRN Reason: Fever/Mild Pain (1-3) Artificial Tears (Polyvinyl Alcohol Drops) 1 drops EYE-BOTH Q2HR PRN PRN Reason: Dry Eye(s) Atropine Sulfate (Atropine 1% Ophth) 2 drops SL Q2HR PRN PRN Reason: Secretions Last Admin: 06/17/23 21:42 Dose: 2 drops Documented By: Admin: 06/17/23 16:40 Dose: 2 drops Documented By: LDV Diphenhydramine HCl (Diphenhydramine 50 Mg/Ml Vial) 25 mg IV Q4HR PRN PRN Reason: Itching Haloperidol (Haloperidol 5 Mg/Ml Vial) 2 mg IV Q1HR PRN PRN Reason: Agitation Last Admin: 06/17/23 21:38 Dose: 2 mg Documented By: Lorazepam (Lorazepam 0.5 Mg Tablet) 1 mg PO Q4H PRN PRN Reason: Agitation Last Admin: 06/16/23 21:24 Dose: 1 mg Documented By: CECILIA Lorazepam (Lorazepam 2 Mg/Ml Inj) 1 mg IV Q1HR PRN PRN Reason: Agitation/Anxiety Last Admin: 06/17/23 22:42 Dose: 1 mg Documented By: Admin: 06/17/23 21:33 Dose: 1 mg Documented By: Admin: 06/17/23 16:28 Dose: 1 mg Documented By: HARLEYV Morphine Sulfate (Morphine 2 Mg/Ml Inj) 2 mg IV Q4HR PRN PRN Reason: Pain, Moderate (4-6) Last Admin: 06/17/23 21:24 Dose: 2 mg Documented By: Admin: 06/17/23 15:36 Dose: 2 mg Documented By: DOREEN Morphine Sulfate (Morphine 2 Mg/Ml Inj) 2 mg IV Q30MIN PRN PRN Reason: Pain/Dyspnea Last Admin: 06/18/23 00:12 Dose: 2 mg Documented By: Admin: 06/17/23 23:31 Dose: 2 mg Documented By: Admin: 06/17/23 23:00 Dose: 2 mg Documented By: Olanzapine (Olanzapine 2.5 Mg Tablet) 5 mg PO BID ELVA Last Admin: 06/17/23 21:06 Dose: Not Given Documented By: Admin: 06/17/23 11:50 Dose: Not Given Documented By: Admin: 06/16/23 20:03 Dose: Not Given Documented By: Admin: 06/16/23 19:00 Dose: 5 mg Documented By: YANDEL Ondansetron HCl (Ondansetron 4 Mg Odt) 4 mg PO Q4HR PRN PRN Reason: Nausea And Vomiting Ondansetron HCl (Ondansetron 4 Mg/2 Ml Inj) 4 mg IV Q4HR PRN PRN Reason: Nausea And Vomiting Scopolamine (Scopolamine 1 Patch) 1 patch TOP Q72H PRN PRN Reason: Secretions Last Admin: 06/17/23 16:47 Dose: 1 patch Documented By: HARLEYV Discontinued Medications Glycopyrrolate (Glycopyrrolate 0.4 Mg/2 Ml Vial) 0.4 mg IV NOW ONE Stop: 06/17/23 12:06 Last Admin: 06/17/23 12:24 Dose: 0.4 mg Documented By: NATE Sodium Chloride (Normal Saline 0.9%) 500 mls @ 1,000 mls/hr IV BOLUS ONE Stop: 06/17/23 07:46 Last Infusion: 06/17/23 08:17 Dose: 0 mls/hr Documented By: Admin: 06/17/23 07:22 Dose: 1,000 mls/hr Documented By: YANDEL Morphine Sulfate (Morphine 4 Mg/Ml Inj) 4 mg IM NOW ONE Stop: 06/17/23 12:07 Last Admin: 06/17/23 12:24 Dose: Not Given Documented By: NATE Morphine Sulfate (Morphine 2 Mg/Ml Inj) 2 mg IV NOW ONE Stop: 06/17/23 12:24 Last Admin: 06/17/23 12:26 Dose: 2 mg Documented By: NATE Reevaluation(s) Reevaluation #1: Laboratory work thus far unremarkable. Attempted catheterization, however patient has had urologic surgery in the past and nursing staff unable to locate patient's urethra. Condom cath placed to extract urine. Reevaluation #2: Care of patient signed to Dr. Rubalcava at 1800 Vital Signs Vital signs: Vital Signs - 8 hr 06/17/23 06:25 06/17/23 05:00 06/17/23 05:30 Temperature 98.4 F Pulse Rate 80 79 77 Respiratory Rate 20 Blood Pressure Blood Pressure [Left Arm] 119/74 Pulse Oximetry 97 97 98 Oxygen Delivery Method Room Air 06/17/23 06:00 06/17/23 06:22 06/17/23 06:22 Temperature Pulse Rate 77 78 Respiratory Rate Blood Pressure 119/74 Blood Pressure [Left Arm] Pulse Oximetry 98 97 Oxygen Delivery Method 06/17/23 06:30 06/17/23 07:00 06/17/23 07:30 Temperature Pulse Rate 79 85 71 Respiratory Rate Blood Pressure Blood Pressure [Left Arm] Pulse Oximetry 95 98 98 Oxygen Delivery Method 06/17/23 08:00 06/17/23 08:30 06/17/23 08:44 Temperature Pulse Rate 71 93 H Respiratory Rate Blood Pressure 128/96 H Blood Pressure [Left Arm] Pulse Oximetry 98 99 Oxygen Delivery Method 06/17/23 08:44 06/17/23 08:57 06/17/23 09:00 Temperature Pulse Rate 104 H 77 77 Respiratory Rate 16 Blood Pressure 122/67 Blood Pressure [Left Arm] Pulse Oximetry 95 98 Oxygen Delivery Method Room Air 06/17/23 09:30 06/17/23 10:00 06/17/23 10:30 Temperature Pulse Rate 77 73 74 Respiratory Rate 17 Blood Pressure 132/89 Blood Pressure [Left Arm] Pulse Oximetry 98 99 99 Oxygen Delivery Method Room Air 06/17/23 11:00 06/17/23 11:14 06/17/23 11:14 Temperature Pulse Rate 71 83 Respiratory Rate 18 Blood Pressure 127/76 111/64 Blood Pressure [Left Arm] Pulse Oximetry 99 99 Oxygen Delivery Method Room Air <Kimberlyn Rubalcava DO - Last Filed: 06/18/23 01:36> Orders Ordered: Acetaminophen (Acetaminophen 325 Mg Tablet) 650 mg PO Q4HR PRN PRN Reason: Fever/Mild Pain (1-3) Artificial Tears (Polyvinyl Alcohol Drops) 1 drops EYE-BOTH Q2HR PRN PRN Reason: Dry Eye(s) Atropine Sulfate (Atropine 1% Ophth) 2 drops SL Q2HR PRN PRN Reason: Secretions Last Admin: 06/17/23 21:42 Dose: 2 drops Documented By: Admin: 06/17/23 16:40 Dose: 2 drops Documented By: HARLEYV Diphenhydramine HCl (Diphenhydramine 50 Mg/Ml Vial) 25 mg IV Q4HR PRN PRN Reason: Itching Haloperidol (Haloperidol 5 Mg/Ml Vial) 2 mg IV Q1HR PRN PRN Reason: Agitation Last Admin: 06/17/23 21:38 Dose: 2 mg Documented By: Lorazepam (Lorazepam 0.5 Mg Tablet) 1 mg PO Q4H PRN PRN Reason: Agitation Last Admin: 06/16/23 21:24 Dose: 1 mg Documented By: CECILIA Lorazepam (Lorazepam 2 Mg/Ml Inj) 1 mg IV Q1HR PRN PRN Reason: Agitation/Anxiety Last Admin: 06/17/23 22:42 Dose: 1 mg Documented By: Admin: 06/17/23 21:33 Dose: 1 mg Documented By: Admin: 06/17/23 16:28 Dose: 1 mg Documented By: LDV Morphine Sulfate (Morphine 2 Mg/Ml Inj) 2 mg IV Q4HR PRN PRN Reason: Pain, Moderate (4-6) Last Admin: 06/17/23 21:24 Dose: 2 mg Documented By: Admin: 06/17/23 15:36 Dose: 2 mg Documented By: LDV Morphine Sulfate (Morphine 2 Mg/Ml Inj) 2 mg IV Q30MIN PRN PRN Reason: Pain/Dyspnea Last Admin: 06/18/23 00:12 Dose: 2 mg Documented By: Admin: 06/17/23 23:31 Dose: 2 mg Documented By: Admin: 06/17/23 23:00 Dose: 2 mg Documented By: Olanzapine (Olanzapine 2.5 Mg Tablet) 5 mg PO BID ELVA Last Admin: 06/17/23 21:06 Dose: Not Given Documented By: Admin: 06/17/23 11:50 Dose: Not Given Documented By: Admin: 06/16/23 20:03 Dose: Not Given Documented By: Admin: 06/16/23 19:00 Dose: 5 mg Documented By: YANDEL Ondansetron HCl (Ondansetron 4 Mg Odt) 4 mg PO Q4HR PRN PRN Reason: Nausea And Vomiting Ondansetron HCl (Ondansetron 4 Mg/2 Ml Inj) 4 mg IV Q4HR PRN PRN Reason: Nausea And Vomiting Scopolamine (Scopolamine 1 Patch) 1 patch TOP Q72H PRN PRN Reason: Secretions Last Admin: 06/17/23 16:47 Dose: 1 patch Documented By: LDV Discontinued Medications Glycopyrrolate (Glycopyrrolate 0.4 Mg/2 Ml Vial) 0.4 mg IV NOW ONE Stop: 06/17/23 12:06 Last Admin: 06/17/23 12:24 Dose: 0.4 mg Documented By: NATE Sodium Chloride (Normal Saline 0.9%) 500 mls @ 1,000 mls/hr IV BOLUS ONE Stop: 06/17/23 07:46 Last Infusion: 06/17/23 08:17 Dose: 0 mls/hr Documented By: Admin: 06/17/23 07:22 Dose: 1,000 mls/hr Documented By: YANDEL Morphine Sulfate (Morphine 4 Mg/Ml Inj) 4 mg IM NOW ONE Stop: 06/17/23 12:07 Last Admin: 06/17/23 12:24 Dose: Not Given Documented By: NATE Morphine Sulfate (Morphine 2 Mg/Ml Inj) 2 mg IV NOW ONE Stop: 06/17/23 12:24 Last Admin: 06/17/23 12:26 Dose: 2 mg Documented By: NATE Vital Signs Vital signs: Vital Signs - 8 hr 06/17/23 06:25 06/17/23 05:00 06/17/23 05:30 Temperature 98.4 F Pulse Rate 80 79 77 Respiratory Rate 20 Blood Pressure Blood Pressure [Left Arm] 119/74 Pulse Oximetry 97 97 98 Oxygen Delivery Method Room Air 06/17/23 06:00 06/17/23 06:22 06/17/23 06:22 Temperature Pulse Rate 77 78 Respiratory Rate Blood Pressure 119/74 Blood Pressure [Left Arm] Pulse Oximetry 98 97 Oxygen Delivery Method 06/17/23 06:30 06/17/23 07:00 06/17/23 07:30 Temperature Pulse Rate 79 85 71 Respiratory Rate Blood Pressure Blood Pressure [Left Arm] Pulse Oximetry 95 98 98 Oxygen Delivery Method 06/17/23 08:00 06/17/23 08:30 06/17/23 08:44 Temperature Pulse Rate 71 93 H Respiratory Rate Blood Pressure 128/96 H Blood Pressure [Left Arm] Pulse Oximetry 98 99 Oxygen Delivery Method 06/17/23 08:44 06/17/23 08:57 06/17/23 09:00 Temperature Pulse Rate 104 H 77 77 Respiratory Rate 16 Blood Pressure 122/67 Blood Pressure [Left Arm] Pulse Oximetry 95 98 Oxygen Delivery Method Room Air 06/17/23 09:30 06/17/23 10:00 06/17/23 10:30 Temperature Pulse Rate 77 73 74 Respiratory Rate 17 Blood Pressure 132/89 Blood Pressure [Left Arm] Pulse Oximetry 98 99 99 Oxygen Delivery Method Room Air 06/17/23 11:00 06/17/23 11:14 06/17/23 11:14 Temperature Pulse Rate 71 83 Respiratory Rate 18 Blood Pressure 127/76 111/64 Blood Pressure [Left Arm] Pulse Oximetry 99 99 Oxygen Delivery Method Room Air MDM - Altered Mental Status <Ana Salcedo MD - Last Filed: 06/17/23 12:35> Lab Data 06/16/23 17:00 06/16/23 17:00 Labs: Lab Results 06/16/23 06/16/23 06/16/23 Range/Units 17:00 17:00 18:04 WBC 6.9 (4.5-11.0) X10^3/uL RBC 4.92 (4.5-5.9) X10^6/uL Hgb 15.2 (13.5-17.5) g/dL Hct 44.3 (41-53) % MCV 90.2 (80-100) fL MCH 30.9 (26-34) PG MCHC 34.3 (30-36) % RDW 15.3 H (11.6-14.8) % Plt Count 230 (150-400) X10^3/uL Neut % (Auto) 68.4 (50-75) % Lymph % (Auto) 14.1 L (25-40) % [place] % (Auto) 11.9 (3-14) % Eos % (Auto) 4.6 H (2-4) % Baso % (Auto) 1.0 (0-2) % Neut # (Auto) 4700 (2070-1382) /uL Lymph # (Auto) 1000 L (8933-7443) /uL [place] # (Auto) 800 (0-900) /uL Eos # (Auto) 300 (0-450) /uL Baso # (Auto) 100 (0-100) /uL Sodium 141 (137-145) mmol/L Potassium 3.6 (3.4-5.1) mmol/L Chloride 105 (98-107) mmol/L Carbon Dioxide 29 (22-32) mmol/L BUN 24 H (9-20) mg/dL Creatinine 1.13 (0.66-1.25) mg/dL Estimated GFR > 60 (>60) mL/min BUN/Creatinine Ratio 21.2 (6-22) Glucose 96 (80-110) mg/dL Calcium 9.5 (8.4-10.2) mg/dL Total Bilirubin 0.7 (0.2-1.3) mg/dL AST 26 (17-59) IU/L ALT 24 (<50) IU/L Alkaline Phosphatase 89 (38-126) U/L Total Protein 6.7 (6.3-8.2) g/dL Albumin 3.8 (3.5-5.0) g/dL Globulin 2.9 (1.7-4.1) g/dL Albumin/Globulin Ratio 1.3 (1.0-2.8) Urine Color Yellow Urine Appearance Clear Urine pH 7.0 (4.5-8.0) Ur Specific [place] 1.020 (1.000-1.035) Urine Protein Negative (Negative) Urine Glucose (UA) Negative (Negative) g/dL Urine Ketones Negative (NEGATIVE) Urine Occult Blood Negative (Negative) Urine Nitrate Negative (Negative) Urine Bilirubin Negative (NEGATIVE) Urine Urobilinogen 1.0 (0.2) E.U./dL Ur Leukocyte Esterase Negative (NEGATIVE) Urine RBC None seen (0-5/HPF) Urine WBC None seen (0-5/HPF) Ur Squamous Epith Cells None seen (0-5/HPF) Urine Bacteria None seen (None) Ur Culture Indicated? Cult not indicated MDM Narrative Medical decision making narrative: Dr. Rubalcava-patient signed out to me by Dr. Salcedo I have seen evaluated patient myself. He just received some medication for olanzapine. Long discussion with recent change in medication he was previously on carbidopa levodopa for Parkinson's however it is thought that he does not have Parkinson's he is underlying dementia. He is fallen a handful times over last couple days becoming more agitated getting out of bed pulling at stuff becoming unmanageable at home for . No evidence of infection head CT and CT cervical spine are negative chest x-ray is negative. He apparently has bed availability at [facility] however his physical needs may have changed it is unclear at this time. Will monitor over night wait for social work evaluation and PT evaluation. Dr. Salcedo 1100 06/17/23 -patient's mental status rapidly declined overnight despite normal labs and unremarkable workup. Patient did appear to be close to , family arrived and stated that they believe the patient would pass soon and they requested that he be made comfort care only. at bedside signed patient is updated POLST form. Patient admitted under comfort care measures to hospitalist service. <Kimberlyn Rubalcava, - Last Filed: 06/18/23 01:36> Lab Data Labs: Lab Results 06/16/23 06/16/23 06/16/23 Range/Units 17:00 17:00 18:04 WBC 6.9 (4.5-11.0) X10^3/uL RBC 4.92 (4.5-5.9) X10^6/uL Hgb 15.2 (13.5-17.5) g/dL Hct 44.3 (41-53) % MCV 90.2 (80-100) fL MCH 30.9 (26-34) PG MCHC 34.3 (30-36) % RDW 15.3 H (11.6-14.8) % Plt Count 230 (150-400) X10^3/uL Neut % (Auto) 68.4 (50-75) % Lymph % (Auto) 14.1 L (25-40) % [place] % (Auto) 11.9 (3-14) % Eos % (Auto) 4.6 H (2-4) % Baso % (Auto) 1.0 (0-2) % Neut # (Auto) 4700 (7726-4142) /uL Lymph # (Auto) 1000 L (8091-8924) /uL [place] # (Auto) 800 (0-900) /uL Eos # (Auto) 300 (0-450) /uL Baso # (Auto) 100 (0-100) /uL Sodium 141 (137-145) mmol/L Potassium 3.6 (3.4-5.1) mmol/L Chloride 105 (98-107) mmol/L Carbon Dioxide 29 (22-32) mmol/L BUN 24 H (9-20) mg/dL Creatinine 1.13 (0.66-1.25) mg/dL Estimated GFR > 60 (>60) mL/min BUN/Creatinine Ratio 21.2 (6-22) Glucose 96 (80-110) mg/dL Calcium 9.5 (8.4-10.2) mg/dL Total Bilirubin 0.7 (0.2-1.3) mg/dL AST 26 (17-59) IU/L ALT 24 (<50) IU/L Alkaline Phosphatase 89 (38-126) U/L Total Protein 6.7 (6.3-8.2) g/dL Albumin 3.8 (3.5-5.0) g/dL Globulin 2.9 (1.7-4.1) g/dL Albumin/Globulin Ratio 1.3 (1.0-2.8) Urine Color Yellow Urine Appearance Clear Urine pH 7.0 (4.5-8.0) Ur Specific [place] 1.020 (1.000-1.035) Urine Protein Negative (Negative) Urine Glucose (UA) Negative (Negative) g/dL Urine Ketones Negative (NEGATIVE) Urine Occult Blood Negative (Negative) Urine Nitrate Negative (Negative) Urine Bilirubin Negative (NEGATIVE) Urine Urobilinogen 1.0 (0.2) E.U./dL Ur Leukocyte Esterase Negative (NEGATIVE) Urine RBC None seen (0-5/HPF) Urine WBC None seen (0-5/HPF) Ur Squamous Epith Cells None seen (0-5/HPF) Urine Bacteria None seen (None) Ur Culture Indicated? Cult not indicated Imaging Data CT scan - head: Radiologist's Impression: PROCEDURE:? CT HEAD/BRAIN WO CON ? INDICATIONS:? worsening dementia, frequent falls ? TECHNIQUE:? Noncontrast 4.5 mm thick angled axial sections acquired from the foramen magnum to the vertex, with coronal and sagittal reformats.? For radiation dose reduction, the following was used:? automated exposure control, adjustment of mA and/or kV according to patient size.? ? COMPARISON:? [facility], CT, CT HEAD/BRAIN WO/W CON, 12/10/2022, 9:05.? [facility], CR, XR CHEST 1V, 06/16/2023, 16:51.? [facility], CT, CT CERVICAL SPINE WO CON, 06/16/2023, 16:45.? [facility], MR, MR HEAD/BRAIN WO CON, 02/22/2023, 12:54. ? FINDINGS:? Image quality:? Mild streak artifact can be seen through the skull base.? ? CSF spaces:? Basal cisterns are patent.? No extra-axial fluid collections.? Prominent lateral ventricles are seen, which are larger than would be expected, given the degree of sulcal atrophy. ? Brain:? No intracranial bleeds or masses.? There is cerebral volume loss for age, with resultant ventricular and sulcal prominence.? There are periventricular and deep white matter chronic small vessel ischemic changes.? There is intracranial internal carotid artery atherosclerosis.? ? Skull and face:? Calvarium and visualized facial bones appear intact, without suspicious lesions.? ? Sinuses:? Visualized sinuses and mastoids are clear.? IMPRESSION:? No acute intracranial hemorrhage is seen. ? No acute intracranial process is seen. ? Prominent lateral ventricles are seen, which are larger than would be expected, given the degree of sulcal atrophy.? Please consider normal pressure hydrocephalus. ? ? ? Dictated by: Jeffrey Orellana M.D. on 06/16/2023 at 16:15 ? ? CT - cervical spine: Radiologist's Impression: PROCEDURE:? CT CERVICAL SPINE WO CON ? INDICATIONS:? FREQUENT FALLS ? TECHNIQUE:? Noncontrast 3 mm thick sections acquired from the skull base to the T4 level.? Sagittal and coronal reformats were then constructed.? For radiation dose reduction, the following was used:? automated exposure control, adjustment of mA and/or kV according to patient size.? ? COMPARISON:? [facility], CR, XR CHEST 1V, 06/16/2023, 16:51.? [facility], CT, CT HEAD/BRAIN WO CON, 06/16/2023, 16:45. ? FINDINGS:? Image quality:? Excellent.? ? Bones:? No fractures or dislocations.? Visualized superior ribs are intact.? ? Focal degenerative change is seen involving the C1-C2 interface anteriorly.? There is at least moderate disc space narrowing seen at C4-C5, C5-C6, and C6-C7.? Posteriorly directed endplate osteophytes are seen at these levels. ? Soft tissues:? Prevertebral soft tissues are normal in thickness.? No paravertebral hematomas.? No apical pneumothoraces.? Mild bronchiectasis can be seen at the lung apices. ? ? IMPRESSION:? Negative for fracture. ? Multiple levels of significant cervical spine degenerative change can be seen. ? ? ? Dictated by: Jeffrey Orellana M.D. on 06/16/2023 at 16:17 ?? Chest x-ray: Radiologist's Impression: PROCEDURE:? XR CHEST 1V ? INDICATIONS:? WORSENING AGITATION ? TECHNIQUE:? One view of the chest was acquired.? ? COMPARISON:? [facility], CT, CT HEAD/BRAIN WO CON, 06/16/2023, 16:45.? [facility], CT, CT CERVICAL SPINE WO CON, 06/16/2023, 16:45. ? FINDINGS:? ? Surgical changes and devices:? None.? ? Lungs and pleura:? On this semiupright portable chest examination, no large pneumothorax or large pleural effusions are seen.? No focal infiltrates are seen.? ? Mediastinum:? The cardiac contours are within normal limits. The aorta demonstrates calcification and tortuosity.? There is a moderate to large hiatal hernia. ? Bones and chest wall:? No displaced rib fracture can be seen.? Age-appropriate bony degenerative changes are seen.? ? No suspicious bony lesions.? Overlying soft tissues appear unremarkable.? ? ? IMPRESSION:? ? No acute cardiopulmonary process is seen.? ? No focal infiltrates are seen. ? Moderate to large hiatal hernia. ? ? Dictated by: Jeffrey Orellana M.D. on 06/16/2023 at 16:18 ? ? MDM Narrative Medical decision making narrative: Dr. Rubalcava-patient signed out to me by Dr. Salcedo I have seen evaluated patient myself. He just received some medication for olanzapine. Long discussion with recent change in medication he was previously on carbidopa levodopa for Parkinson's however it is thought that he does not have Parkinson's he is underlying dementia. He is fallen a handful times over last couple days becoming more agitated getting out of bed pulling at stuff becoming unmanageable at home for . No evidence of infection head CT and CT cervical spine are negative chest x-ray is negative. He apparently has bed availability at [facility] however his physical needs may have changed it is unclear at this time. Will monitor over night wait for social work evaluation and PT evaluation. Throughout the night he have some difficulty breathing seem to be slightly positional. Patient has had out to Dr. Matias Salcedo 1100 06/17/23 -patient's mental status rapidly declined overnight despite normal labs and unremarkable workup. Patient did appear to be close to , family arrived and stated that they believe the patient would pass soon and they requested that he be made comfort care only. at bedside signed patient is updated POLST form. Patient admitted under comfort care measures to hospitalist service. Discharge Plan Departure Patient Disposition: Admitted as Observation Clinical Impression: Advanced dementia, Admission for end of life care, Counseling regarding end of life decision making, DNR (do not resuscitate) Admit Date/Time: 06/17/23 12:03 Admit Provider: Felipa Astorga
--- NOTE | 2023-06-16 16:49 | DI.CT.S_ITS ---
PROCEDURE: CT HEAD/BRAIN WO CON INDICATIONS: worsening dementia, frequent falls TECHNIQUE: Noncontrast 4.5 mm thick angled axial sections acquired from the foramen magnum to the vertex, with coronal and sagittal reformats. For radiation dose reduction, the following was used: automated exposure control, adjustment of mA and/or kV according to patient size. COMPARISON: [facility], CT, CT HEAD/BRAIN WO/W CON, 12/10/2022, 9:05. [facility], CR, XR CHEST 1V, 06/16/2023, 16:51. [facility], CT, CT CERVICAL SPINE WO CON, 06/16/2023, 16:45. [facility], MR, MR HEAD/BRAIN WO CON, 02/22/2023, 12:54. FINDINGS: Image quality: Mild streak artifact can be seen through the skull base. CSF spaces: Basal cisterns are patent. No extra-axial fluid collections. Prominent lateral ventricles are seen, which are larger than would be expected, given the degree of sulcal atrophy. Brain: No intracranial bleeds or masses. There is cerebral volume loss for age, with resultant ventricular and sulcal prominence. There are periventricular and deep white matter chronic small vessel ischemic changes. There is intracranial internal carotid artery atherosclerosis. Skull and face: Calvarium and visualized facial bones appear intact, without suspicious lesions. Sinuses: Visualized sinuses and mastoids are clear. IMPRESSION: No acute intracranial hemorrhage is seen. No acute intracranial process is seen. Prominent lateral ventricles are seen, which are larger than would be expected, given the degree of sulcal atrophy. Please consider normal pressure hydrocephalus. Dictated by: Jeffrey Orellana M.D. on 06/16/2023 at 16:15 Approved by: Jeffrey Orellana M.D. on 06/16/2023 at 16:16
--- NOTE | 2023-06-16 17:17 | PC.NURSE ---
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 Pt had surgery that narrowed the urethral opening. Condom cath was placed.
[2023-06-16 17:28] LABS: Alanine Aminotransferase 24 IU/L (<50); Albumin 3.8 g/dL (3.5-5.0); Albumin Globulin Ratio 1.3 (1.0-2.8); Alkaline Phosphatase 89 U/L (38-126); Aspartate Aminotransferase 26 IU/L (17-59); BUN Creatinine Ratio 21.2 (6-22); Bilirubin Total 0.7 mg/dL (0.2-1.3); Blood Urea Nitrogen 24 mg/dL (9-20); Calcium 9.5 mg/dL (8.4-10.2); Carbon Dioxide 29 mmol/L (22-32); Chloride 105 mmol/L (98-107); Estimated Glomerular Filt Rate > 60 mL/min (>60); Globulin 2.9 g/dL (1.7-4.1); Glucose 96 mg/dL (80-110); HEMOLYSIS < 15 (0-50); Potassium 3.6 mmol/L (3.4-5.1); Sodium 141 mmol/L (137-145); Total Protein 6.7 g/dL (6.3-8.2)
[2023-06-16 17:35] LABS: Add Manual Diff / Slide Review NO; Basophils Absolute Auto 100 /uL (0-100); Eosinophils Absolute Auto 300 /uL (0-450); Eosinophils Percent Auto 4.6 % (2-4); Hematocrit 44.3 % (41-53); Hemoglobin 15.2 g/dL (13.5-17.5); Lymphocytes Absolute Auto 1000 /uL (1100-4500); Lymphocytes Percent Auto 14.1 % (25-40); Mean Corpuscular HGB Conc 34.3 % (30-36); Mean Corpuscular Hemoglobin 30.9 PG (26-34); Mean Corpuscular Volume 90.2 fL (80-100); Monocytes Absolute Auto 800 /uL (0-900); Monocytes Percent Auto 11.9 % (3-14); Neutrophils Absolute Auto 4700 /uL (1500-7000); Neutrophils Percent Auto 68.4 % (50-75); Platelet Count 230 X10^3/uL (150-400); Red Blood Cell Count 4.92 X10^6/uL (4.5-5.9); Red Cell Distribution Width 15.3 % (11.6-14.8); White Blood Cell Count 6.9 X10^3/uL (4.5-11.0)
[2023-06-16 18:13] LABS: Appearance Urine UA CLEAR; Bilirubin Urine UA NEGATIVE (NEGATIVE); Color Urine UA YELLOW; Glucose Urine UA NEGATIVE (Negative); Ketones Urine UA NEGATIVE (NEGATIVE); Leukocyte Esterase Urine UA NEGATIVE (NEGATIVE); Nitrite Urine UA NEGATIVE (Negative); Occult Blood Urine UA NEGATIVE (Negative); Protein Urine UA NEGATIVE (Negative)
[2023-06-16 18:28] LABS: Bacteria Urine None Seen; Culture Indicated Urine Cult Not Indicated; RBC Urine None Seen (0-5/HPF); Squamous Epithelial Cell Urine None Seen (0-5/HPF); WBC Urine None Seen (0-5/HPF)
[2023-06-16] MEDS: OLANZapine 2.5 MG TABLET 5 MG PO (19:00)
[2023-06-16] MEDS: LORazepam 0.5 MG TABLET 1 MG PO (21:24)
[2023-06-17] VITALS (25 sets, daily range): BP systolic 108–132; BP diastolic 64–96; PULSE 71–104; RESP 16–20; TEMP 36.5–36.9; O2SAT 95–99; BMI 18.4
[2023-06-17] MEDS: SODIUM CHLORIDE 0.9% 500 ML 1000 ML IV (07:22)
--- NOTE | 2023-06-17 11:11 | PC.NURSE ---
Family will come today at 12pm to speak with JOHNSON Palafox about plan for future care.
--- NOTE | 2023-06-17 12:08 | PT-IP ANOTE ---
Received PT orders and completed chart review. Per discussion with ED RN, provider has decided to cancel PT order. Will sign off at this time.
[2023-06-17] MEDS: GLYCOPYRROLATE 0.4 MG/2 ML VIAL IV (12:24)
[2023-06-17] MEDS: MORPHINE 2 MG/ML INJ IV ×5 (12:26→23:31)
--- NOTE | 2023-06-17 15:09 | PM.HP.1 ---
History of Present Illness History of Present Illness Date Patient Seen: 06/17/23 Time Patient Seen: 15:09 Chief complaint: agitated dementia Narrative: The patient of Dr. Avila who has a known history of severe, end-stage dementia and has had worsening behavioral problems and decline in his overall condition. He presents to the ER with his and family with complaints of marked worsening decline and almost unresponsive. Patient was evaluated in the ER where he underwent a CT scan of his head, CT scan of the neck because of falls and a chest x-ray which did not show acute abnormalities, fractures etc.. Blood work was unremarkable but he continued to have progressive decline and essentially was not responding and unable to walk. Patient has been a DNR/DNI and he was admitted to the hospital for comfort care with underlying diagnosis of end-stage dementia. Apparently family has noticed a decline in his cognitive function over the last 7-8 years and he has been reluctant to seek medical care. He then had behavioral problems and was seen by Dr. Avila in November. At that time Dr. Avila thought he had parkinsonism feature and started him on levodopa. He got into see Dr. Arguelles, neurology, and he did not feel like this was of Parkinson's disorder and he took him off his levodopa and was concerned about possible fluid on his brain and possible need for a shunt placement. Patient saw Dr. Avila 2 days ago and at that time he was told to stop the Seroquel and he was placed on lorazepam 3 times daily with a follow-up next week. The patient was able to walk into the appointment. His current condition represents a significant decline Past medical history: 1. BPH 2. Balanitis 3. Allergic rhinitis 4. Hyperlipidemia 5. Dementia Allergies: Penicillin Past surgical history: Inguinal hernia repair Urethral stricture Health related behavior: He does not smoke and never has not regular basis. He does not use alcohol. He does not use recreational drugs. Family history: Father is and from complications of coronary artery disease Mother is and from cancer Social history: Patient is and lives with his here in [facility]. He has a son who lives in [place] and a daughter who is present here. PCP is Dr. Avila Review of systems: Negative for any fever, rashes. Patient had episodes of constipation and diarrhea and has lost 20 lb since that I think this was back in November. He is had outbursts and agitation and disorientation where he is lashing out. It appears he has sun downers as well. He is not had any significant cough or chest pain or shortness of breath. He is not had any significant bowel or urine symptoms. He has fallen but no known history of falling on his head. [facility] Medical History (Updated 06/17/23 @ 12:35 by Ana Salcedo MD) Allergic rhinitis (05/03/14) BXO (balanitis xerotica obliterans) Chicken pox (~1952) Constipation Dementia Elevated prostate specific antigen (PSA) (02/04/18) Hyperlipidemia, unspecified (06/28/11) Measles (~1953) Mumps (~1958) Rubella (~1963) Surgical History Anesthesia Cut of face (~1948) Hx of inguinal hernia surgery (~01/18/03) Urethral stricture (~10/10/02) Family History Father Heart disease Mother Cancer Social History household members: spouse Smoking Status: Never smoker alcohol intake: never Meds Home Medications and Allergies Home Medications Medication Instructions Recorded Confirmed Type cholecalciferol (vitamin D3) 50 100 mcg PO DAILY 03/25/23 06/16/23 History mcg (2,000 unit) capsule lorazepam 2 mg tablet 2 mg PO TID PRN severe agitation 06/14/23 06/16/23 Rx #60 tabs olanzapine 5 mg tablet 5 mg PO BID #60 tabs 06/14/23 06/16/23 Rx Allergies Allergy/AdvReac Type Severity Reaction Status Date / Time Penicillins [PENICILLINS] Allergy Mild Verified 06/16/23 17:27 Exam Vital Signs (past 8 hours): - 06/17/23 07:30 06/17/23 08:00 06/17/23 08:30 Temperature Pulse Rate 71 71 93 H Respiratory Rate Blood Pressure Pulse Oximetry 98 98 99 Oxygen Delivery Method Oxygen Flow Rate 06/17/23 08:44 06/17/23 08:44 06/17/23 08:57 Temperature Pulse Rate 104 H 77 Respiratory Rate Blood Pressure 128/96 H Pulse Oximetry 95 Oxygen Delivery Method Oxygen Flow Rate 06/17/23 09:00 06/17/23 09:30 06/17/23 10:00 Temperature Pulse Rate 77 77 73 Respiratory Rate 16 17 Blood Pressure 122/67 132/89 Pulse Oximetry 98 98 99 Oxygen Delivery Method Room Air Room Air Oxygen Flow Rate 06/17/23 10:30 06/17/23 11:00 06/17/23 11:14 Temperature Pulse Rate 74 71 Respiratory Rate 18 Blood Pressure 127/76 111/64 Pulse Oximetry 99 99 Oxygen Delivery Method Room Air Oxygen Flow Rate 06/17/23 11:14 06/17/23 14:35 Temperature 97.7 F Pulse Rate 83 89 Respiratory Rate 16 Blood Pressure 108/72 Pulse Oximetry 99 96 Oxygen Delivery Method Oxygen Flow Rate 0 Oxygen Delivery Method Room Air Oxygen Flow Rate 0 Narrative Exam Narrative: Patient is afebrile vital signs are stable. Patient is somnolent lying in the hospital bed and opens eyes when stimulated but is not able to follow commands HEENT is remarkable for slightly dry mucous membranes and poor dentition but no other abnormalities Neck: Supple without any masses or bruits or jugular venous distention Chest: Clear to auscultation without any wheezes or crackles but diffuse scattered rhonchi Cor: Regular rate and rhythm with distant S1-S2 Abdomen: Thin, positive bowel sounds, soft, nontender, nondistended, no hepatosplenomegaly Extremities: Very thin with pulses 1+ posterior tibialis and dorsalis pedis Neurologic exam patient does not respond to commands. She he awakens to stimulation opens his eyes but is unable to converse. There is no focal deficits of his upper and lower extremities. Objective Labs 06/16/23 17:00 06/16/23 17:00 Labs: Laboratory Results - last 24 hr 06/16/23 06/16/23 06/16/23 17:00 17:00 18:04 WBC 6.9 RBC 4.92 Hgb 15.2 Hct 44.3 MCV 90.2 MCH 30.9 MCHC 34.3 RDW 15.3 H Plt Count 230 Neut % (Auto) 68.4 Lymph % (Auto) 14.1 L [place] % (Auto) 11.9 Eos % (Auto) 4.6 H Baso % (Auto) 1.0 Neut # (Auto) 4700 Lymph # (Auto) 1000 L [place] # (Auto) 800 Eos # (Auto) 300 Baso # (Auto) 100 Sodium 141 Potassium 3.6 Chloride 105 Carbon Dioxide 29 BUN 24 H Creatinine 1.13 Estimated GFR > 60 BUN/Creatinine Ratio 21.2 Glucose 96 Calcium 9.5 Total Bilirubin 0.7 AST 26 ALT 24 Alkaline Phosphatase 89 Total Protein 6.7 Albumin 3.8 Globulin 2.9 Albumin/Globulin Ratio 1.3 Urine Color Yellow Urine Appearance Clear Urine pH 7.0 Ur Specific [place] 1.020 Urine Protein Negative Urine Glucose (UA) Negative Urine Ketones Negative Urine Occult Blood Negative Urine Nitrate Negative Urine Bilirubin Negative Urine Urobilinogen 1.0 Ur Leukocyte Esterase Negative Urine RBC None seen Urine WBC None seen Ur Squamous Epith Cells None seen Urine Bacteria None seen Ur Culture Indicated? Cult not indicated Assessment & Plan Assessment & Plan narrative: 77-year-old male with diagnosis of end-stage dementia with marked decline in cognition and overall condition with no clear etiology from this based on blood work, chest x-ray, CT of head and neck. Plan: We will go ahead and admit the patient to the hospital for comfort care. I would a lengthy discussion with his , daughter and his son via telephone regarding this and reviewed his pulse form. We discussed various ways to carry this out and at this point we will do full comfort care. We will provide morphine for pain and lorazepam IV for agitation and respiratory difficulty, Zofran for nausea, help with secretions. We will not do any vitals unless are needed for comfort and we will not do any blood work. We will also not do any fluids. We discussed the pros and cons of this. We will do oxygen if it is deemed that this will be helpful for his comfort. A 75 minutes spent with patient and discussing his case with the ER, nursing, family and holding a family conference. Reviewed his chart and clinic chart and workup thus far and ER evaluation and formulating a plan and documentation. Quality VTE Deep Vein Thrombosis/Pulmonary Embolism Present on Admission: No
[2023-06-17] MEDS: LORazepam 2 MG/ML INJ 1 MG IV ×3 (16:28→22:42)
[2023-06-17] MEDS: ATROPINE 1% OPHTH 2 DROPS SL ×2 (16:40→21:42)
[2023-06-17] MEDS: SCOPOLAMINE 1 PATCH TOP (16:47)
[2023-06-17] MEDS: HALOPERIDOL 5 MG/ML VIAL 2 MG IV (21:38)
--- NOTE | 2023-06-17 21:56 | PC.NURSE ---
Pt currently on comfort care. Oral care provided. pt repositioned to left side. pt received 2 mg MS ivp, 1 mg IVp lorazepam, 2 mg of haldol Ivp and 2 gtts of atropine drops. Music channel provided. Bed alarm in place. pt resting comfortably at the moment.
[2023-06-18] MEDS: MORPHINE 2 MG/ML INJ IV (00:12)
--- NOTE | 2023-06-18 01:06 | PC.NURSE ---
Addendum entered by Christa De Souza R.N. 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 Original Note: Pt at 0050. No respirations or heart rate noted. Dr. Rhodes notified as well as blaze's who was very appreciative of the care. Per the last couple of days have been difficult. Per she would like [facility] to be notified.
--- NOTE | 2023-07-08 08:59 | P.DN_ITS ---
Discharge Summary History of Illness Narrative: The patient of Dr. Avila who has a known history of severe, end-stage dementia and has had worsening behavioral problems and decline in his overall condition. He presents to the ER with his and family with complaints of marked worsening decline and almost unresponsive. Patient was evaluated in the ER where he underwent a CT scan of his head, CT scan of the neck because of falls and a chest x-ray which did not show acute abnormalities, fractures etc.. Blood work was unremarkable but he continued to have progressive decline and essentially was not responding and unable to walk. Patient has been a DNR/DNI and he was admitted to the hospital for comfort care with underlying diagnosis of end-stage dementia. Apparently family has noticed a decline in his cognitive function over the last 7-8 years and he has been reluctant to seek medical care. He then had behavioral problems and was seen by Dr. Avila in November. At that time Dr. Avila thought he had parkinsonism feature and started him on levodopa. He got into see Dr. Arguelles, neurology, and he did not feel like this was of Parkinson's disorder and he took him off his levodopa and was concerned about possible fluid on his brain and possible need for a shunt placement. Patient s aw Dr. Avila 2 days ago and at that time he was told to stop the Seroquel and he was placed on lorazepam 3 times daily with a follow-up next week. The patient was able to walk into the appointment. His current condition represents a significant decline Past medical history: 1. BPH 2. Balanitis 3. Allergic rhinitis 4. Hyperlipidemia 5. Dementia Allergies: Penicillin Past surgical history: Inguinal hernia repair Urethral stricture Health related behavior: He does not smoke and never has not regular basis. He does not use alcohol. He does not use recreational drugs. Family history: Father is and from complications of coronary artery disease Mother is and from cancer Social history: Patient is and lives with his here in [facility]. He has a son who lives in [place] and a daughter who is present here. PCP is Dr. Avila Review of systems: Negative for any fever, rashes. Patient had episodes of constipation and diarrhea and has lost 20 lb since that I think this was back in November. He is had outbursts and agitation and disorientation where he is lashing out. It appears he has sun downers as well. He is not had any significant cough or chest pain or shortness of breath. He is not had any significant bowel or urine symptoms. He has fallen but no known history of falling on his head. Hospital Course Date of Admission: 06/17/23 12:03 Primary care provider: Pola Avila MD Consults: 06/16/23 18:40 Consult to [facility] [place] [facility] Stat Comment: placement 06/16/23 18:42 Consult to Physical Therapy Evaluate & Treat Comment: Physician Instructions: Evaluate and Treat 06/17/23 15:56 Consult to Discharge Planning Routine Comment: Consult to Hospice Referral Urgent Comment: Discharge provider: benny Discharge Diagnosis: severe dementia Hospital Course: Patient admitted to the hospital with diagnosis of failure to thrive and severe, agitated dementia. Admitted for comfort care. Patient was admitted to the hospital and approximately 8 hours after admission. Patient was comfortable with family at bedside. Objective Labs 06/16/23 17:00 06/16/23 17:00
== END 2023-06-18 03:55 | disposition expired | DRG 951 ==
LOC: ED 18:40 → AC 06-17 12:08
PROVIDERS: Admitting Provider Family Medicine; Emergency Provider Emergency Medicine; Family Provider Internal Medicine; PCP Internal Medicine; Referring Provider Emergency Medicine; Visit Provider Family Medicine
DX: Z51.5 Encounter for palliative care (principal); Z68.1 Body mass index [BMI] 19.9 or less, adult; F03.C0 Unspecified dementia, severe, without behavioral disturbance, psychotic disturbance, mood disturbance, and anxiety; R62.7 Adult failure to thrive; Z66 Do not resuscitate
CPT/HCPCS: 70450; 71045; 72125; 80053; 81001; 85025; 93005; 93010; 96374; 96375; 99284; G0378; J1630; J2060; J2270